=== PATIENT | female | born 1955 | race Caucasian/White ===

== ENCOUNTER 2017-03-19 10:00 | Inpatient (IN) | payer OTHER ==
[~2017-03-19] VITALS: Ht 165.1 cm; Wt 92.2 kg
[~2017-03-19 10:00] MED LIST: ACYC5CRE2 TP; ACYC800T PO; ALBU18HF IH; AMIT25TA PO; AMIT50TA PO; ASCO100020 PO; ASPI-630 PO; ASPI325T8 PO; BIOT25006 PO; CITA40TA5 PO; CLOP75TA PO; CRAN200C2 PO; DILT120C2 PO; FERR-26 PO; FEXO180T81 PO; FLUT1DIS IH; FLUT1DIS3 IH; FURO20TA3 PO; GABA-586 PO; HYDR-971 PO; LEVO50TA PO; LORA0.5T PO; LURA40TA PO; NITR1PAT9 SL; OMEG1CAP38 PO; OMEP20CA9 PO; ONDA4TAB12 PO; OXYC1TAB9 PO; PRALUENT; PRAS10TA9 PO; PROM25TA10 PO; RANO500T2 PO; SUMA100T4 PO; TRAM50TA PO; TRIA10.8 NS; VITA400T6 PO; [UNRECOGNIZED DRUG - OTHER]; advair
[2017-03-19] MEDS ORDERED: IV NORMAL SALINE 1,000ML 1,000 ML IV SCH (10:14)
[2017-03-19] MEDS ORDERED: ONDANSETRON PF 4 MG/2 ML VIAL. IV ONE (10:30)
[2017-03-19 10:52] LABS: BASO # 0.1 x10^3/uL (0.0-0.2); BASO % 0 % (0-3); EOS % 0 % (0-3); HEMATOCRIT 36.3 % (36.0-47.0); HEMOGLOBIN 11.5 g/dL (12.0-15.5); LYMPH # 2.7 x10^3/uL (1.0-4.8); LYMPH % 18 % (24-48); MEAN CORPUSCULAR HEMOGLOBIN 26 pg (25-35); MEAN CORPUSCULAR HGB CONC 32 g/dL (31-37); MEAN CORPUSCULAR VOLUME 81 fL (79-100); MONO # 1.2 x10^3/uL (0.0-1.1); MONO % 7 % (0-9); NEUT # 11.6 x10^3uL (1.8-7.7); NEUT % 75 % (31-73); PLATELET COUNT 437 x10^3/uL (140-400); RED BLOOD COUNT 4.51 x10^6/uL (3.50-5.40); RED CELL DISTRIBUTION WIDTH 19.5 % (11.5-14.5); WHITE BLOOD COUNT 15.5 x10^3/uL (4.0-11.0)
[2017-03-19] MEDS: fentaNYL PF 100 MCG/2 ML VIAL IV PRN ×9 (10:54→23:12)
--- NOTE | 2017-03-19 10:57 | RAD ---
Indication abdominal pain. History of bowel obstruction. A single view of the chest was obtained as well as flat and upright films of the abdomen. Comparison is made to a similar series of films December 14, 2016. The heart and pulmonary vessels appear normal. The lungs are clear. There is no free air. There is marked dilatation of proximal small bowel loops. Scattered air-fluid levels are seen on the upright film. There is a paucity of gas in the large bowel. Findings are consistent with high-grade mechanical small bowel obstruction. IMPRESSION: High-grade mechanical small bowel obstruction The chest is clear
--- NOTE | 2017-03-19 11:07 | PHYS DOC ---
Past History Past Medical History: Anxiety, Bipolar, CAD, Depression, Fibromyalgia, GERD, High Cholesterol, Hypothyroid, Migraines, Renal Failure, Other Past Surgical History: Other Smoking: Cigarettes Alcohol Use: None Drug Use: None Adult General Chief Complaint Chief Complaint: bowel obstruction HPI HPI Patient is a 61-year-old female who presents with the complaint of nausea, bloating, dry heaves, and abdominal pain for 3 days. Patient states "I just need an NG tube, some nausea and pain medication and IV fluids." Patient has an ileostomy which sometimes gets obstructed. She believes she has one of these episodes. She has tried taking GoLYTELY at home and has had some liquid output in her ileostomy but it did not resolve her symptoms. She said that usually what happens and she will get an NG tube for a couple of days and it usually resolves itself. She's had this multiple times. Patient states she has a hiatal hernia and is not able to vomit, she wishes she could vomit because she would feel better. She does have dry heaves. PCP Dr. Chacon Review of Systems Review of Systems Constitutional: Denies fever or chills [] Eyes: Denies change in visual acuity, redness, or eye pain [] HENT: Denies nasal congestion or sore throat [] Respiratory: Denies cough or shortness of breath [] Cardiovascular: Denies chest pain GI: As in history of present illness : Denies dysuria or hematuria [] Musculoskeletal: Denies back pain or joint pain [] Integument: Denies rash or skin lesions [] Neurologic: Denies headache, focal weakness or sensory changes [] Current Medications Current Medications Current Medications Medications (Trade) Dose Ordered Sig/Mima Start Time Stop Time Status Last Admin Dose Admin Fentanyl Citrate (Fentanyl 2ml Vial) 50 mcg PRN Q15MIN PRN 03/19/17 10:30 03/20/17 10:29 03/19/17 10:54 50 MCG Ondansetron HCl (Zofran) 4 mg 1X ONCE 03/19/17 10:30 03/19/17 10:31 DC 03/19/17 10:54 4 MG Sodium Chloride 1,000 ml @ 1,000 mls/hr Q1H 03/19/17 10:14 03/19/17 11:13 03/19/17 10:53 1,000 MLS/HR Allergies Allergies Allergies Coded Allergies Type Severity Reaction Last Updated Verified Penicillins Allergy Intermediate hives, short of air 09/09/16 Yes Sulfa (Sulfonamide Antibiotics) Allergy Intermediate hives 09/09/16 Yes atorvastatin Allergy Intermediate hives 09/09/16 Yes clonazepam Allergy Intermediate hives, short of air 09/09/16 Yes erythromycin base Allergy Intermediate hives 08/16/16 Yes fenofibrate Allergy Intermediate hives 08/16/16 Yes iodine Allergy Intermediate hives, short of air 08/16/16 Yes loratadine Allergy Intermediate hives, short of air 08/16/16 Yes pregabalin Allergy Intermediate hives 08/16/16 Yes ranolazine Allergy Intermediate hives 08/16/16 Yes rosuvastatin Allergy Intermediate hives 08/16/16 Yes sertraline Allergy Intermediate hives 08/16/16 Yes silver sulfadiazine Allergy Intermediate hives 08/16/16 Yes simvastatin Allergy Intermediate hives 08/16/16 Yes Physical Exam Physical Exam Constitutional: Well developed, well nourished, no acute distress, non-toxic appearance. Alert, mentating normally. HENT: Normocephalic, atraumatic, bilateral external ears normal, nose normal. [ ] Eyes: conjunctiva normal, no discharge. [] Neck: Normal range of motion, no stridor. [] Cardiovascular:Heart rate regular rhythm, nontachycardiac, no murmur [] Lungs & Thorax: Bilateral breath sounds clear to auscultation [] Abdomen: Distended with increased tympany. Increased bowel sounds. Ileostomy present with small amount of loose brown stool. Tender to palpation diffusely in the abdomen with no rebound or guarding. Skin: Warm, dry, no erythema, no rash. [] Extremities: No tenderness, no cyanosis, no clubbing, ROM intact, no edema. [] Neurologic: Alert and oriented X 3, normal motor function, normal sensory function, no focal deficits noted. [] Current Patient Data Vital Signs Vital Signs Date Time Temp Pulse Resp B/P (MAP) Pulse Ox O2 Delivery O2 Flow Rate FiO2 03/19/17 10:54 20 95 03/19/17 10:00 98.6 94 Room Air Lab Results Laboratory Tests Test 03/19/17 10:30 White Blood Count 15.5 x10^3/uL (4.0-11.0) H Red Blood Count 4.51 x10^6/uL (3.50-5.40) Hemoglobin 11.5 g/dL (12.0-15.5) L Hematocrit 36.3 % (36.0-47.0) Mean Corpuscular Volume 81 fL (79-100) Mean Corpuscular Hemoglobin 26 pg (25-35) Mean Corpuscular Hemoglobin Concent 32 g/dL (31-37) Red Cell Distribution Width 19.5 % (11.5-14.5) H Platelet Count 437 x10^3/uL (140-400) H Neutrophils (%) (Auto) 75 % (31-73) H Lymphocytes (%) (Auto) 18 % (24-48) L Monocytes (%) (Auto) 7 % (0-9) Eosinophils (%) (Auto) 0 % (0-3) Basophils (%) (Auto) 0 % (0-3) Neutrophils # (Auto) 11.6 x10^3uL (1.8-7.7) H Lymphocytes # (Auto) 2.7 x10^3/uL (1.0-4.8) Monocytes # (Auto) 1.2 x10^3/uL (0.0-1.1) H Eosinophils # (Auto) 0.0 x10^3/uL (0.0-0.7) Basophils # (Auto) 0.1 x10^3/uL (0.0-0.2) EKG EKG [] Radiology/Procedures Radiology/Procedures Acute abdomen series obtained and read by the radiologist. Also reviewed by me. High-grade small bowel obstruction with no free air. The chest is clear. [] Course & Med Decision Making Course & Med Decision Making Pertinent Labs and Imaging studies reviewed. (See chart for details) 61-year-old female with a history of recurrent small bowel obstructions that may be related to malfunctioning ileostomy, that's not clear to me, presents with symptoms consistent with a small bowel obstruction. We will check labs and x-rays, give her IV fluids and IV pain and nausea medicines. Plain films are consistent with small bowel obstruction. NG tube was ordered. Labs remarkable for creatinine elevated at 1.9, likely due to dehydration, and white count elevated at 15, may also be due to dehydration, she does not have a surgical abdomen. I discussed The case with Dr. Hinson, on-call for hospital medicine. She will admit the patient. I wrote bridge orders. [] Dragon Disclaimer Dragon Disclaimer This chart was dictated in whole or in part using Voice Recognition software in a busy, high-work load, and often noisy Emergency Department environment. It may contain unintended and wholly unrecognized errors or omissions. Departure Departure: Impression: Primary Impression: Small bowel obstruction Additional Impression: Dehydration Disposition: 09 ADMITTED INPATIENT Admitting Physician: Sofie Hinson Condition: STABLE Referrals: JESUS PALUMBO MD (PCP) Problem Qualifiers TEE GARAY MD March 19, 2017 11:07
[2017-03-19 11:17] LABS: % BANDS 2 % (0-9); % LYMPHS 20 % (24-48); % MONOS 3 % (0-10); % SEGS 75 % (35-66)
[2017-03-19 11:18] LABS: ANISOCYTOSIS MOD; MICROCYTOSIS SLIGHT; PLT ESTIMATE ADEQUATE (ADEQUATE); POIKILOCYTOSIS SLIGHT
[2017-03-19] MEDS ORDERED: BENZOCAINE ONE 20% MUCOSAL SPRAY. MM (11:30)
[2017-03-19 11:45] LABS: ALBUMIN 2.7 g/dL (3.4-5.0); ALBUMIN/GLOBULIN RATIO 0.7 (1.0-1.7); CALCIUM 8.2 mg/dL (8.5-10.1); CREATININE 1.9 mg/dL (0.6-1.0); GFR 27.1; POTASSIUM 4.3 mmol/L (3.5-5.1); TOTAL BILIRUBIN 0.4 mg/dL (0.2-1.0); TOTAL PROTEIN 6.5 g/dL (6.4-8.2)
[2017-03-19] MEDS: IV NORMAL SALINE 1,000ML 1,000 ML IV SCH ×2 (11:58→18:11)
[2017-03-19 12:23] VITALS: BP 103/64
--- NOTE | 2017-03-19 12:23 | ACF ---
Admission Criteria Forms INTESTINAL OBSTRUCTION Clinical Indications for Admission to Inpatient Care (Place 'X' for any and all applicable criteria): Admission is indicated for ANY ONE of the following (1)(2)(3)(4)(5): [X]I. Partial bowel obstruction [ ]II. Complete bowel obstruction Extended stay beyond goal length of stay may be needed for(1)(4)(12(: [ ]a) Identified etiology (eg, hernia, volvulus, cancer with obstruction) requiring intervention [ ]b) Gallstone ileus [ ]c) Surgical intervention [ ]d) Acute comorbid illness (eg, electrolyte imbalance, hypovolemia, renal failure) The original [employer] content created by [employer] has been revised. The portions of the content which have been revised are identified through the use of italic text or in bold, and [facility] has neither reviewed nor approved the modified material. All other unmodified content is copyright [employer] Please see references footnoted in the original [employer] edition 2016 Admission Criteria Met?: Yes PANTERA SMITH March 19, 2017 12:23
[2017-03-19] MEDS: METOCLOPRAMIDE HCL 10 MG/2 ML VIAL. IV PRN (13:15)
[2017-03-19] MEDS: FAMOTIDINE 20 MG/2 ML VIAL IVP SCH ×2 (13:15→19:38)
[2017-03-19] MEDS ORDERED: ALBU1.25 NEB (13:26)
[2017-03-19 15:22] VITALS: BP 104/66
[2017-03-19] MEDS: ONDANSETRON PF 4 MG/2 ML VIAL. IV PRN ×2 (16:07→21:28)
[2017-03-19] MEDS: MVI, ADULT NO.4 WITH VIT K 10 ML, FOLIC ACID 1 MG, THIAMINE 100 MG in IV DEXTROSE 5 %-0... IV SCH ×4 (18:48)
[2017-03-19 19:45] VITALS: BP 110/68
[2017-03-19] MEDS ORDERED: ALBUTEROL SULFATE 2.5 MG/3 ML NEBU. NEB SCH (20:00)
[2017-03-19] MEDS ORDERED: NON FORMULARY ITEM (Albuterol Sulfate (Albuterol Sulfate Neb Soln) 1 VIAL) NEB SCH (20:00)
[2017-03-19] MEDS: ALBUTEROL SULFATE 2.5 MG/3 ML NEBU. NEB SCH (20:16)
[2017-03-19 23:11] VITALS: BP 101/69
[2017-03-20] MEDS: METOCLOPRAMIDE HCL 10 MG/2 ML VIAL. IV PRN ×3 (01:14→13:54)
[2017-03-20] MEDS: fentaNYL PF 100 MCG/2 ML VIAL IV PRN ×7 (01:14→13:54)
[2017-03-20] MEDS: IV NORMAL SALINE 1,000ML 1,000 ML IV SCH ×4 (01:50→22:02)
[2017-03-20] MEDS: ALBUTEROL SULFATE 2.5 MG/3 ML NEBU. NEB SCH ×3 (05:22→20:34)
[2017-03-20] MEDS: ONDANSETRON PF 4 MG/2 ML VIAL. IV PRN ×3 (05:27→15:59)
[2017-03-20 05:35] VITALS: BP 118/69
[2017-03-20] MEDS: FAMOTIDINE 20 MG/2 ML VIAL IVP SCH ×2 (08:11→22:23)
[2017-03-20 08:20] LABS: BASO % 0 % (0-3); EOS % 0 % (0-3); HEMATOCRIT 30.3 % (36.0-47.0); HEMOGLOBIN 9.9 g/dL (12.0-15.5); LYMPH # 1.9 x10^3/uL (1.0-4.8); LYMPH % 18 % (24-48); MEAN CORPUSCULAR HEMOGLOBIN 27 pg (25-35); MEAN CORPUSCULAR HGB CONC 33 g/dL (31-37); MEAN CORPUSCULAR VOLUME 81 fL (79-100); MONO # 0.7 x10^3/uL (0.0-1.1); MONO % 7 % (0-9); NEUT # 7.8 x10^3uL (1.8-7.7); NEUT % 75 % (31-73); PLATELET COUNT 308 x10^3/uL (140-400); RED BLOOD COUNT 3.74 x10^6/uL (3.50-5.40); RED CELL DISTRIBUTION WIDTH 19.7 % (11.5-14.5); WHITE BLOOD COUNT 10.4 x10^3/uL (4.0-11.0)
[2017-03-20 08:31] LABS: ALBUMIN 2.4 g/dL (3.4-5.0); ALBUMIN/GLOBULIN RATIO 0.7 (1.0-1.7); CALCIUM 7.7 mg/dL (8.5-10.1); CREATININE 1.2 mg/dL (0.6-1.0); MAGNESIUM 1.8 mg/dL (1.8-2.4); POTASSIUM 3.8 mmol/L (3.5-5.1); TOTAL BILIRUBIN 0.3 mg/dL (0.2-1.0); TOTAL PROTEIN 5.7 g/dL (6.4-8.2)
--- NOTE | 2017-03-20 10:13 | PDOC2 ---
JENNIFER PEÑALOZA CHIEF SCIENTIST 03/20/17 1013: CONSULT Date of Admission DATE: 03/20/17 TIME: 10:04 Reason for Consult: SBO Referring Physician: Dr Hinson Chief Complaint abdominal pain Source: Chart review, Patient Problem List Problems Medical Problems: (1) Dehydration Status: Acute (2) Small bowel obstruction Status: Acute History of Present Illness Several day history of abdominal pain and nausea. She has had a HH repair in past, no vomiting. Ileostomy output decreased and watery. Not able to maintain much PO at home. Still having some abdominal pain and minimal ostomy output. She has had multiple abdominal surgeries in past and several SBOs, last here for SBO in November Cardiovascular: CAD, HTN, NE, hyperipidemia Psych: Bipolar, Depression Rheumatologic: Fibromyalgia Past Surgical History: Appendectomy, Cholecystectomy, Colectomy (ileostomy), Other (beverley fundoplication) Family History: Coronary Artery Disease Smoke: <1 pack per day ALCOHOL: none Drugs: None Lives: Alone Current Medications Current Medications Fentanyl Citrate (Fentanyl 2ml Vial) 50 mcg PRN Q15MIN PRN IV PAIN GREATER THAN 3/10 Last administered on 03/19/17 11:44; Start 03/19/17 at 10:30; Stop 03/19 at 12:19; Status DC Sodium Chloride 1,000 ml @ 1,000 mls/hr Q1H IV Last administered on 03/19/17 10:53; Start 03/19/17 at 10:14; Stop 03/19/17 at 11:13; Status DC Ondansetron HCl (Zofran) 4 mg 1X ONCE IV Last administered on 03/19/17 10:54; Start 03/19/17 at 10:30; Stop 03/19/17 at 10:31; Status DC Benzocaine (Hurricaine One) 1 spray 1X ONCE MM Last administered on 03/19/17 11:45; Start 03/19/17 at 11:30; Stop 03/19/17 at 11:31; Status DC Ondansetron HCl (Zofran) 4 mg PRN Q4HRS PRN IV NAUSEA/VOMITING Last administered on 03/20/17 05:27; Start 03/19/17 at 12:00; Stop 03/20/17 at 11:59 Fentanyl Citrate (Fentanyl 2ml Vial) 50 mcg PRN Q1HR PRN IV PAIN Last administered on 03/20/17 08:12; Start 03/19/17 at 12:00; Stop 03/20/17 at 09:09; Status DC Sodium Chloride 1,000 ml @ 150 mls/hr Q6H40M IV Last administered on 03/20/17 08:11; Start 03/19/17 at 11:58; Stop 03/20/17 at 11:57 Metoclopramide HCl (Reglan) 5 mg PRN Q6HRS PRN IV NAUSEA/VOMITING Last administered on 03/20/17 08:11; Start 03/19/17 at 12:45 Famotidine (Pepcid) 20 mg BID IVP Last administered on 03/20/17 08:11; Start at 12:45 Multivitamins/ Minerals 10 ml/ Folic Acid 1 mg/ Thiamine HCl 100 mg/Dextrose/ Sodium Chloride 1,011.2 ml @ 100.009 mls/hr Q24H IV Last administered on 18:48; Start 03/19/17 at 21:00 Non-Formulary Medication 1 vial RTBID NEB ; Start 03/19/17 at 20:00; Status UNV Albuterol Sulfate (Ventolin) 2.5 mg RTBID NEB ; Start 03/19/17 at 20:00; Stop 03/19/17 at 20:00; Status DC Albuterol Sulfate (Ventolin) 2.5 mg TID NEB Last administered on 03/20/17 05:22 ; Start 03/19/17 at 21:00 Fentanyl Citrate (Fentanyl 2ml Vial) 75 mcg PRN Q2HR PRN IV PAIN Last administered on 03/20/17 09:21; Start 03/20/17 at 09:15; Stop 03/25/17 at 09:14 Active Scripts Active Clopidogrel (Clopidogrel Bisulfate) 75 Mg Tablet 75 Mg PO [id number] Reported Albuterol Sulfate Neb Soln (Albuterol Sulfate) 1.25 Mg/3 Ml Vial.neb 1 Vial NEB RTBID [praluent] Ranexa (Ranolazine) 500 Mg Tab.er.12h 1 Tab PO BID Ferrous Sulfate 325 Mg Tablet 325 Mg PO DAILY may resume DATE: TIME: NEXT DOSE DUE: DATE: TIME: [place] 3 Fish Oil Softgel ([place]-3 Fatty Acids/Fish Oil) 1 Each Capsule.dr 1 Cap PO DAILY may resume Aspirin 325 Mg Tablet 325 Mg PO DAILY may resume Amitriptyline Hcl 25 Mg Tablet 25 Mg PO QHS may resume DATE: TIME: NEXT DOSE DUE: DATE: TIME: Latuda (Lurasidone Hcl) 40 Mg Tablet 40 Mg PO QHS last dose last night next dose tonight TIME: NEXT DOSE DUE: DATE: TIME: Biotin 2,500 Mcg Capsule 2,000 Mcg PO DAILY may resume DATE: TIME: NEXT DOSE DUE: DATE: TIME: Cranberry (Cranberry Extract) 200 Mg Capsule 1 Cap PO DAILY may resume DATE: TIME: NEXT DOSE DUE: DATE: TIME: Vitamin E (Vitamin E Mixed) 400 Unit Tablet 800 Unit PO DAILY may resume DATE: TIME: NEXT DOSE DUE: DATE: TIME: Nasacort (Triamcinolone Acetonide) 10.8 Ml [place] 1 Spr NS DAILY may resume DATE: TIME: NEXT DOSE DUE: DATE: TIME: Tatiana Allergy (Fexofenadine Hcl) 180 Mg Tablet 180 Mg PO DAILY LAST DOSE GIVEN: DATE: TIME: NEXT DOSE DUE: DATE: TIME: Zovirax (Acyclovir) 5 Gm Cream..g. 1 [place] TP PRN may resume as needed DATE: TIME: NEXT DOSE DUE: DATE: TIME: Acyclovir 800 Mg Tablet 800 Mg PO TID PRN resume as needed DATE: TIME: NEXT DOSE DUE: DATE: TIME: Ondansetron Odt (Ondansetron) 4 Mg Tab.rapdis 4 Mg PO Q4HRS PRN may resume DATE: TIME: NEXT DOSE DUE: DATE: TIME: Promethazine Hcl 25 Mg Tablet 25 Mg PO PRN Q6HRS PRN may resume DATE: TIME: NEXT DOSE DUE: DATE: TIME: Oxycodone-Acetaminophen 10-325 (Oxycodone Hcl/Acetaminophen) 1 Each Tablet 1 Tab PO Q4HRS PRN last dose this morning at 3:40am may resume as needed TIME: NEXT DOSE DUE: DATE: TIME: NITRO-DUR 0.4mg/hr (Nitroglycerin) 1 Each Patch.td24 0.4 Mg SL PRN PRN 1 tab q 5 min x 3 doses as needed for chest pain LAST DOSE GIVEN: DATE: TIME: NEXT DOSE DUE: DATE: TIME: Furosemide 20 Mg Tablet 20 Mg PO QODAY may resume DATE: TIME: NEXT DOSE DUE: DATE: TIME: Synthroid (Levothyroxine Sodium) 50 Mcg Tablet 50 Mcg PO DAILY last dose this morning next dose tomorrow TIME: NEXT DOSE DUE: DATE: TIME: Omeprazole 20 Mg Capsule.dr 20 Mg PO DAILY may resume DATE: TIME: NEXT DOSE DUE: DATE: TIME: Citalopram Hbr (Citalopram Hydrobromide) 40 Mg Tablet 40 Mg PO DAILY may resume DATE: TIME: NEXT DOSE DUE: DATE: TIME: Lorazepam 0.5 Mg Tablet 0.5 Mg PO DAILY may resume DATE: TIME: NEXT DOSE DUE: DATE: TIME: Tramadol Hcl (Tramadol HCl) 50 Mg Tablet 100 Mg PO BID may resume DATE: TIME: NEXT DOSE DUE: DATE: TIME: Cardizem Cd (Diltiazem Hcl) 120 Mg Cap.er.24h 120 Mg PO BID may resume DATE: TIME: NEXT DOSE DUE: DATE: TIME: Gabapentin 300 Mg Capsule 300 Mg PO TID last dose last night next dose this morning TIME: NEXT DOSE DUE: DATE: TIME: Allergies: Coded Allergies: Penicillins (Verified Allergy, Intermediate, hives, short of air, 09/09/16 ) Sulfa (Sulfonamide Antibiotics) (Verified Allergy, Intermediate, hives, ) atorvastatin (Verified Allergy, Intermediate, hives, 09/09/16) clonazepam (Verified Allergy, Intermediate, hives, short of air, 09/09/16) erythromycin base (Verified Allergy, Intermediate, hives, 08/16/16) fenofibrate (Verified Allergy, Intermediate, hives, 08/16/16) iodine (Verified Allergy, Intermediate, hives, short of air, 08/16/16) loratadine (Verified Allergy, Intermediate, hives, short of air, 08/16/16) pregabalin (Verified Allergy, Intermediate, hives, 08/16/16) ranolazine (Verified Allergy, Intermediate, hives, 08/16/16) rosuvastatin (Verified Allergy, Intermediate, hives, 08/16/16) sertraline (Verified Allergy, Intermediate, hives, 08/16/16) silver sulfadiazine (Verified Allergy, Intermediate, hives, 08/16/16) simvastatin (Verified Allergy, Intermediate, hives, 08/16/16) General: No: Chills, Other (fevers) PSYCHOLOGICAL ROS: No: Anxiety, Depression Eyes: No: Blurry vision, Double vision HEENT: YES: Sore Throat, No: Heacaches Hematological and Lymphatic: YES: Bleeding Problems, No: Blood Clots Respiratory: No: Cough, Shortness of breath Cardiovascular: No: Chest Pain, Palpitations Gastrointestinal: YES: Other (see hpi) Genitourinary: YES: Dysuria, No: Henaturia Musculoskeletal: YES: Joint Pain, Muscle Pain Neurological: No: Confusion, Numbness/Tingling Skin: No: Pruritus, Rash General: Alert, Oriented X3, Cooperative, No acute distress HEENT: Other (NG present, scant drainage ) Lungs: Clear to auscultation, Normal air movement Heart: Regular rate, Normal S1, Normal S2, No murmurs Abdomen: Soft, Other (ND, NTTP, ileostomy present, small amoount liquid stool, she reports not her typical output) Extremities: No clubbing, No cyanosis Skin: No rashes, No breakdown, No significant lesion Neuro: Normal speech, Sensation intact Psych/Mental Status: Mental status NL VITALS Vital Signs Date Time Temp Pulse Resp B/P (MAP) Pulse Ox O2 Delivery O2 Flow Rate FiO2 03/20/17 07:45 Nasal Cannula 2.0 03/20/17 05:57 94 03/20/17 05:35 98.1 95 16 118/69 (85) Labs Laboratory Tests Test 03/19/17 10:30 03/19/17 11:16 03/19/17 12:11 03/20/17 08:12 White Blood Count 15.5 x10^3/uL (4.0-11.0) 10.4 x10^3/uL (4.0-11.0) Red Blood Count 4.51 x10^6/uL (3.50-5.40) 3.74 x10^6/uL (3.50-5.40) Hemoglobin 11.5 g/dL (12.0-15.5) 9.9 g/dL (12.0-15.5) Hematocrit 36.3 % (36.0-47.0) 30.3 % (36.0-47.0) Mean Corpuscular Volume 81 fL (79-100) 81 fL (79-100) Mean Corpuscular Hemoglobin 26 pg (25-35) 27 pg (25-35) Mean Corpuscular Hemoglobin Concent 32 g/dL (31-37) 33 g/dL (31-37) Red Cell Distribution Width 19.5 % (11.5-14.5) 19.7 % (11.5-14.5) Platelet Count 437 x10^3/uL (140-400) 308 x10^3/uL (140-400) Neutrophils (%) (Auto) 75 % (31-73) 75 % (31-73) Lymphocytes (%) (Auto) 18 % (24-48) 18 % (24-48) Monocytes (%) (Auto) 7 % (0-9) 7 % (0-9) Eosinophils (%) (Auto) 0 % (0-3) 0 % (0-3) Basophils (%) (Auto) 0 % (0-3) 0 % (0-3) Neutrophils # (Auto) 11.6 x10^3uL (1.8-7.7) 7.8 x10^3uL (1.8-7.7) Lymphocytes # (Auto) 2.7 x10^3/uL (1.0-4.8) 1.9 x10^3/uL (1.0-4.8) Monocytes # (Auto) 1.2 x10^3/uL (0.0-1.1) 0.7 x10^3/uL (0.0-1.1) Eosinophils # (Auto) 0.0 x10^3/uL (0.0-0.7) 0.0 x10^3/uL (0.0-0.7) Basophils # (Auto) 0.1 x10^3/uL (0.0-0.2) 0.0 x10^3/uL (0.0-0.2) Segmented Neutrophils % 75 % (35-66) Band Neutrophils % 2 % (0-9) Lymphocytes % 20 % (24-48) Monocytes % 3 % (0-10) Platelet Estimate Adequate (ADEQUATE) Poikilocytosis Slight Anisocytosis Mod Microcytosis Slight Sodium Level 132 mmol/L (136-145) 138 mmol/L (136-145) Potassium Level 4.3 mmol/L (3.5-5.1) 3.8 mmol/L (3.5-5.1) Chloride Level 96 mmol/L (98-107) 105 mmol/L (98-107) Carbon Dioxide Level 26 mmol/L (21-32) 26 mmol/L (21-32) Anion Gap 10 (6-14) 7 (6-14) Blood Urea Nitrogen 32 mg/dL (7-20) 14 mg/dL (7-20) Creatinine 1.9 mg/dL (0.6-1.0) 1.2 mg/dL (0.6-1.0) Estimated GFR (Cockcroft-Gault) 27.1 46.0 BUN/Creatinine Ratio 17 (6-20) 12 (6-20) Glucose Level 100 mg/dL (70-99) 84 mg/dL (70-99) Calcium Level 8.2 mg/dL (8.5-10.1) 7.7 mg/dL (8.5-10.1) Total Bilirubin 0.4 mg/dL (0.2-1.0) 0.3 mg/dL (0.2-1.0) Aspartate Amino Transf (AST/SGOT) 57 U/L (15-37) 23 U/L (15-37) Alanine Aminotransferase (ALT/SGPT) 38 U/L (14-59) 24 U/L (14-59) Alkaline Phosphatase 202 U/L (46-116) 164 U/L (46-116) Total Protein 6.5 g/dL (6.4-8.2) 5.7 g/dL (6.4-8.2) Albumin 2.7 g/dL (3.4-5.0) 2.4 g/dL (3.4-5.0) Albumin/Globulin Ratio 0.7 (1.0-1.7) 0.7 (1.0-1.7) Lipase 101 U/L (73-393) Nasal Screen MRSA (PCR) Negative (Negative) Magnesium Level 1.8 mg/dL (1.8-2.4) Assessment/Plan SBO per plain films dehydration, improved XIOMARA--Cr now 1.2, improved multiple surgeries in past NG, decompression, hydration will check CT abd/pelvis hopefully will resolve without surgical intervention hold plavix Problems: GIRISH BRISCOE MD 03/20/17 1242: CONSULT Allergies: Coded Allergies: Penicillins (Verified Allergy, Intermediate, hives, short of air, 09/09/16 ) Sulfa (Sulfonamide Antibiotics) (Verified Allergy, Intermediate, hives, ) atorvastatin (Verified Allergy, Intermediate, hives, 09/09/16) clonazepam (Verified Allergy, Intermediate, hives, short of air, 09/09/16) erythromycin base (Verified Allergy, Intermediate, hives, 08/16/16) fenofibrate (Verified Allergy, Intermediate, hives, 08/16/16) iodine (Verified Allergy, Intermediate, hives, short of air, 08/16/16) loratadine (Verified Allergy, Intermediate, hives, short of air, 08/16/16) pregabalin (Verified Allergy, Intermediate, hives, 08/16/16) ranolazine (Verified Allergy, Intermediate, hives, 08/16/16) rosuvastatin (Verified Allergy, Intermediate, hives, 08/16/16) sertraline (Verified Allergy, Intermediate, hives, 08/16/16) silver sulfadiazine (Verified Allergy, Intermediate, hives, 08/16/16) simvastatin (Verified Allergy, Intermediate, hives, 08/16/16) Assessment/Plan Patient well known. She has had multiple episodes of sbo which have generally resolved with conservative treatment. Generally seen at [facility] where her last procedure was done, endoscopic desimpaction of ileostomy. Agree with Steff's assessment and plan. Problems: JENNIFER PEÑALOZA APRN March 20, 2017 10:13 GIRISH BRISCOE MD March 20, 2017 12:42
[2017-03-20] MEDS ORDERED: BARIUM SULFATE 2.1% 450 ML SUSP PO ONE (10:30)
[2017-03-20 11:50] VITALS: BP 108/64
--- NOTE | 2017-03-20 12:13 | HP ---
ADMIT DATE: 03/20/2017 REASON FOR ADMISSION: Small-bowel obstruction. HISTORY OF PRESENT ILLNESS: This is a 61-year-old female who has had multiple ileuses and small bowel obstructions in the past requiring hospitalization. She reports that she has been under a lot of stress lately and has not been eating the right kind of food. She has been eating a lot of junk. She reports a 4-day history of bloating and abdominal pain and so presented to the Emergency Room. PAST MEDICAL HISTORY: 1. Recurrent bowel obstructions. 2. Ileostomy status. 3. Coronary artery disease. 4. CHF. 5. Hypertension. 6. Hyperlipidemia. 7. Migraine headaches. 8. GERD. 9. Bipolar disorder. 10. Osteoarthritis. 11. Chronic renal insufficiency. 12. Hypothyroidism. PAST SURGICAL HISTORY: Cholecystectomy and colectomy with ileostomy. ALLERGIES: MULTIPLE ALLERGIES, PENICILLIN, SULFA, ATORVASTATIN, CLONAZEPAM, ERYTHROMYCIN, FENOFIBRATE, IODINE, LORATADINE, PREGABALIN, RANOLAZINE, ROSUVASTATIN, SERTRALINE, SILVER SULFADIAZINE, AND SIMVASTATIN. FAMILY HISTORY: Positive for hypertension. SOCIAL HISTORY: The patient continues to smoke less than a pack a day. Alcohol none. Drugs none. Lives with her family. MEDICATIONS: Reviewed and are available on the MAR currently being held. REVIEW OF SYSTEMS: Stated as occasional headache, blockage around the ileostomy currently, and cramping abdominal pain. OBJECTIVE: VITAL SIGNS: Blood pressure 118/69, pulse 95, respirations 16, temperature 98.1, pulse ox 94% on 2 liters, height 65 inches, and weight 198 pounds. GENERAL: A 61-year-old was in mild pain. Color is pale. HEENT: Tongue was moist and slightly dry. NECK: Supple. LUNGS: Clear. CARDIOVASCULAR: Regular rhythm and rate. ABDOMEN: Mildly distended. There is an NG tube in place. She has scant bowel sounds. Really, no output coming from the ileostomy. Some air in the ileostomy bag. EXTREMITIES: Without edema. LABORATORY DATA: White count was 15.5. Chemistry, sodium 138, but it was 132; potassium 3.8, magnesium 1.8, calcium 7.7, and albumin 2.4. CT of the abdomen is pending. Acute abdominal series from yesterday shows high-grade mechanical small-bowel obstruction. ASSESSMENT: 1. Recurrent small-bowel obstruction. 2. Dehydration. 3. Pain management. 4. Dehydration replacement. 5. Leukocytosis, suspect inflammatory and not sepsis. 6. Stress. 7. Bipolar disorder stable. 8. Tobacco use disorder. PLAN: N.p.o., NG tube, surgical consult, IV fluids, and pain management. We will hold off on antibiotics at this time. TORI LAST DO DR: STELLA/marlon JOB#: [id number] / [id number]
--- NOTE | 2017-03-20 12:48 | RAD ---
Indication small bowel obstruction. Abdominal pain. Oral contrast was administered. IV contrast was not. Note is made of a previous examination December 12, 2016. Note is made of the plain film examination yesterday demonstrating findings compatible with high-grade mechanical small bowel obstruction. The lung bases are clear. Nasogastric tube is noted extending into the stomach. Colostomy in the right lower abdomen is noted. The liver and spleen appear unremarkable. Clips are noted in the gallbladder fossa. No adrenal or renal pathology is seen. The pancreas appears unremarkable. A focal mass or inflammatory process in the abdomen is not seen. There are are a few mesenteric lymph nodes. These are probably incidental and appears similar to the previous exam. A soft tissue mass or inflammatory process in the pelvis is not seen. There are markedly dilated loops of small bowel. The most distal small bowel loops, just prior to the ostomy a relatively collapsed. Findings are most compatible with high-grade mechanical small bowel obstruction. The exact transition point is not certain but it is probably several centimeters proximal to the ileostomy site. IMPRESSION: High-grade mechanical small bowel obstruction PQRS Compliance Statement: One or more of the following individualized dose reduction techniques were utilized for this examination: 1. Automated exposure control 2. Adjustment of the mA and/or kV according to patient size 3. Use of iterative reconstruction technique
[2017-03-20] MEDS: ENOXAPARIN 40 MG/0.4 ML DISP.SYRIN. SQ SCH (13:54)
[2017-03-20] MEDS: HYDROmorphone PF 2 MG/ML VIAL IV PRN ×4 (15:54→22:22)
[2017-03-20] MEDS ORDERED: POLYVINYL ALCOHOL/POVIDONE/PF OPHTH SOLUTION DROPERETTE. OU PRN (16:15)
[2017-03-20 16:50] VITALS: BP 123/81
[2017-03-20 19:15] VITALS: BP 120/79
[2017-03-20] MEDS ORDERED: SUMAtriptan. 6 MG/0.5 ML VIAL SQ ONE (20:30)
[2017-03-20] MEDS: MVI, ADULT NO.4 WITH VIT K 10 ML, FOLIC ACID 1 MG, THIAMINE 100 MG in IV DEXTROSE 5 %-0... IV SCH ×4 (22:22)
[2017-03-21] MEDS: HYDROmorphone PF 2 MG/ML VIAL IV PRN ×8 (00:30→19:46)
[2017-03-21] MEDS: METOCLOPRAMIDE HCL 10 MG/2 ML VIAL. IV PRN ×2 (03:03→12:03)
[2017-03-21] MEDS: ALBUTEROL SULFATE 2.5 MG/3 ML NEBU. NEB SCH ×3 (05:18→19:53)
[2017-03-21 05:21] VITALS: BP 105/64
[2017-03-21 06:50] LABS: BASO % 0 % (0-3); EOS % 0 % (0-3); HEMATOCRIT 30.5 % (36.0-47.0); HEMOGLOBIN 9.4 g/dL (12.0-15.5); LYMPH # 2.5 x10^3/uL (1.0-4.8); LYMPH % 34 % (24-48); MEAN CORPUSCULAR HEMOGLOBIN 26 pg (25-35); MEAN CORPUSCULAR HGB CONC 31 g/dL (31-37); MEAN CORPUSCULAR VOLUME 83 fL (79-100); MONO # 0.9 x10^3/uL (0.0-1.1); MONO % 12 % (0-9); NEUT % 54 % (31-73); PLATELET COUNT 304 x10^3/uL (140-400); RED CELL DISTRIBUTION WIDTH 19.4 % (11.5-14.5); WHITE BLOOD COUNT 7.4 x10^3/uL (4.0-11.0)
[2017-03-21 06:57] LABS: ALBUMIN 2.4 g/dL (3.4-5.0); ALBUMIN/GLOBULIN RATIO 0.7 (1.0-1.7); GFR 56.7; POTASSIUM 3.5 mmol/L (3.5-5.1); TOTAL BILIRUBIN 0.2 mg/dL (0.2-1.0); TOTAL PROTEIN 5.8 g/dL (6.4-8.2)
[2017-03-21] MEDS: ONDANSETRON PF 4 MG/2 ML VIAL. IV PRN (08:22)
[2017-03-21] MEDS: IV NORMAL SALINE 1,000ML 1,000 ML IV SCH ×3 (08:23→13:59)
[2017-03-21] MEDS: FAMOTIDINE 20 MG/2 ML VIAL IVP SCH ×2 (08:23→19:35)
[2017-03-21 10:01] VITALS: BP 129/69
[2017-03-21] MEDS ORDERED: SUMAtriptan. 6 MG/0.5 ML VIAL SQ PRN (11:45)
--- NOTE | 2017-03-21 11:52 | PDOC ---
SURGICAL PROGRESS NOTE Subjective Doing better, with stool in ostomy. Still having nausea, but less pain Vital Signs Vital Signs Date Time Temp Pulse Resp B/P (MAP) Pulse Ox O2 Delivery O2 Flow Rate FiO2 03/21/17 10:01 98.8 97 20 129/69 (89) 93 Room Air 03/20/17 11:50 1.0 I&O Intake and Output 03/21/17 06:59 Intake Total 1709 ml Output Total 800 ml Balance 909 ml Intake Oral 0 ml IV Total 1709 ml Output Gastric Drainage Total 800 ml # Voids 9 # Bowel Movements 2 PATIENT HAS A BEAL: No General: Alert, Oriented X3, Cooperative, mild distress Abdomen: Normal bowel sounds, Soft, No tenderness, Other (NGT in place. Stool in the ostomy bag) Labs Laboratory Tests Test 03/19/17 12:11 03/20/17 08:12 03/21/17 06:07 Nasal Screen MRSA (PCR) Negative (Negative) White Blood Count 10.4 x10^3/uL (4.0-11.0) 7.4 x10^3/uL (4.0-11.0) Red Blood Count 3.74 x10^6/uL (3.50-5.40) 3.70 x10^6/uL (3.50-5.40) Hemoglobin 9.9 g/dL (12.0-15.5) 9.4 g/dL (12.0-15.5) Hematocrit 30.3 % (36.0-47.0) 30.5 % (36.0-47.0) Mean Corpuscular Volume 81 fL (79-100) 83 fL (79-100) Mean Corpuscular Hemoglobin 27 pg (25-35) 26 pg (25-35) Mean Corpuscular Hemoglobin Concent 33 g/dL (31-37) 31 g/dL (31-37) Red Cell Distribution Width 19.7 % (11.5-14.5) 19.4 % (11.5-14.5) Platelet Count 308 x10^3/uL (140-400) 304 x10^3/uL (140-400) Neutrophils (%) (Auto) 75 % (31-73) 54 % (31-73) Lymphocytes (%) (Auto) 18 % (24-48) 34 % (24-48) Monocytes (%) (Auto) 7 % (0-9) 12 % (0-9) Eosinophils (%) (Auto) 0 % (0-3) 0 % (0-3) Basophils (%) (Auto) 0 % (0-3) 0 % (0-3) Neutrophils # (Auto) 7.8 x10^3uL (1.8-7.7) 4.0 x10^3uL (1.8-7.7) Lymphocytes # (Auto) 1.9 x10^3/uL (1.0-4.8) 2.5 x10^3/uL (1.0-4.8) Monocytes # (Auto) 0.7 x10^3/uL (0.0-1.1) 0.9 x10^3/uL (0.0-1.1) Eosinophils # (Auto) 0.0 x10^3/uL (0.0-0.7) 0.0 x10^3/uL (0.0-0.7) Basophils # (Auto) 0.0 x10^3/uL (0.0-0.2) 0.0 x10^3/uL (0.0-0.2) Sodium Level 138 mmol/L (136-145) 139 mmol/L (136-145) Potassium Level 3.8 mmol/L (3.5-5.1) 3.5 mmol/L (3.5-5.1) Chloride Level 105 mmol/L (98-107) 105 mmol/L (98-107) Carbon Dioxide Level 26 mmol/L (21-32) 28 mmol/L (21-32) Anion Gap 7 (6-14) 6 (6-14) Blood Urea Nitrogen 14 mg/dL (7-20) 8 mg/dL (7-20) Creatinine 1.2 mg/dL (0.6-1.0) 1.0 mg/dL (0.6-1.0) Estimated GFR (Cockcroft-Gault) 46.0 56.7 BUN/Creatinine Ratio 12 (6-20) 8 (6-20) Glucose Level 84 mg/dL (70-99) 87 mg/dL (70-99) Calcium Level 7.7 mg/dL (8.5-10.1) 8.0 mg/dL (8.5-10.1) Magnesium Level 1.8 mg/dL (1.8-2.4) Total Bilirubin 0.3 mg/dL (0.2-1.0) 0.2 mg/dL (0.2-1.0) Aspartate Amino Transf (AST/SGOT) 23 U/L (15-37) 19 U/L (15-37) Alanine Aminotransferase (ALT/SGPT) 24 U/L (14-59) 20 U/L (14-59) Alkaline Phosphatase 164 U/L (46-116) 145 U/L (46-116) Total Protein 5.7 g/dL (6.4-8.2) 5.8 g/dL (6.4-8.2) Albumin 2.4 g/dL (3.4-5.0) 2.4 g/dL (3.4-5.0) Albumin/Globulin Ratio 0.7 (1.0-1.7) 0.7 (1.0-1.7) Assessment/Plan SBO appears to be resolving. Awaiting SBFT results but patient says they told her the barium went all the way through. If the official report on SBFT confirms passing then NGT can be removed. GIRISH BRISCOE MD March 21, 2017 11:52
--- NOTE | 2017-03-21 11:58 | RAD ---
Exam performed: Small bowel Follow-through exam. History: Small bowel obstruction follow-up Date of service: 03/21/17. Comparison: None available Discussion: A preliminary computer numeric control setter film of the abdomen demonstrates nonspecific mildly prominent small bowel loops. There is a feeding tube in the stomach. Cholecystectomy. Patient was administered approximately 2 cups of nondilated Omnipaque and sequential images of the abdomen are obtained. There is mild prominence of the jejunal and ileal loops. There is presence of contrast in the ileostomy tube at approximately 1 hour 15 minutes. Spot films were not taken Impression: Mild prominence of the jejunal and ileal loops likely mild ileus pattern. No evidence of obstruction is seen.
[2017-03-21] MEDS: ENOXAPARIN 40 MG/0.4 ML DISP.SYRIN. SQ SCH (12:03)
[2017-03-21] MEDS ORDERED: ACYCLOVIR TP PRN (13:00)
[2017-03-21] MEDS ORDERED: ONDANSETRON ODT 4 MG TAB.RAPDIS PO PRN (13:00)
[2017-03-21] MEDS ORDERED: PROMETHAZINE 25 MG TABLET. PO PRN (13:00)
[2017-03-21] MEDS ORDERED: ACYCLOVIR 800 MG PO PRN (13:00)
[2017-03-21] MEDS: GABAPENTIN 300 MG CAPSULE. PO SCH ×2 (13:58→19:35)
[2017-03-21 14:52] VITALS: BP 115/66
[2017-03-21 16:18] VITALS: BP 142/77
[2017-03-21 19:22] VITALS: BP 107/62
[2017-03-21] MEDS: MVI, ADULT NO.4 WITH VIT K 10 ML, FOLIC ACID 1 MG, THIAMINE 100 MG in IV DEXTROSE 5 %-0... IV SCH ×4 (19:34)
[2017-03-21] MEDS: oxyCODONE/APAP 10/325 1 TAB TABLET PO PRN ×3 (19:35→22:37)
[2017-03-21] MEDS: RANOLAZINE 500 MG TAB.ER.12H PO SCH (19:36)
[2017-03-21] MEDS: AMITRIPTYLINE HCL 25 MG TABLET PO SCH (19:39)
[2017-03-21] MEDS ORDERED: LURASIDONE 40 MG TABLET. PO SCH (21:00)
--- NOTE | 2017-03-21 21:05 | PN ---
DATE: 03/21/2017 SUBJECTIVE: The patient is resting slightly propped up in bed, in no apparent distress. She came in with the small-bowel obstruction and apparently has had NG tube to suction and underwent small bowel follow through and it showed that there is mild prominence of the jejunal and ileal loops. There is presence of contrast in the ileostomy tube approximately 1 hour [address] to Dr. Navarro, her NG tube can come out and hopefully we will probably be able to start her on clear liquid diet. PHYSICAL EXAMINATION: GENERAL: When I examined her this morning, she looked well and was clearly in no apparent respiratory distress, slightly pale, but no jaundice, cyanosis or thyromegaly. No jugular venous distention. No limb edema. VITAL SIGNS: Her heart rate was 97, blood pressure 129/69, temperature was 98.8, respiratory rate 20 and oxygen saturation was 93% on room air. HEAD, EYES, EARS, NOSE AND THROAT: Showed normocephalic, atraumatic. NECK: Supple. HEART: Showed normal first and second heart sounds with no gallop, rub or murmur. CHEST: Clear to auscultation. No crepitation or rhonchi. ABDOMEN: Distended, soft with an ileostomy bag in the right lower quadrant. The abdomen was generally soft except some tenderness around the ileostomy bag. No guarding or rigidity. No organomegaly. All hernial orifices intact. Bowel sounds normal. NEUROLOGIC: She is awake, alert, responding appropriately. Cranial nerves are intact. She moves extremities without difficulty. She ambulates without assistance or assistive devices. Her intake over the last 24 hours was 1700, output was 800. LABORATORY DATA: Showed a serum sodium was 139, potassium 3.5, chloride 105, bicarbonate 28, anion gap of 6, BUN 8, creatinine 1, estimated GFR was 56 mL per minute. Her glucose was 87, calcium was 8. Total bilirubin, AST, ALT were normal. Alkaline phosphatase slightly elevated. Her total protein was 5.8, albumin 2.4. Her white cell count was 7400, hemoglobin 9.4, hematocrit 30.5, MCV 83 and platelet count of 304,000. ASSESSMENT: Small-bowel obstruction, resolving. Her small bowel follow through showed that the barium is in the ileostomy bag. Other issues include coronary artery disease, congestive heart failure, hypertension, hyperlipidemia, migraine headache, chronic renal insufficiency, hypothyroidism and bipolar disorder. PLAN: My plan is to discontinue the NG tube and start her on a clear liquid diet, continue with antiemetic and pain medication for now and advance diet as tolerated if she has no episodes of nausea or vomiting and tolerating a clear liquid diet without any problem. MAGDALENA PARADA MD DR: CLARA/marlon JOB#: [id number] / [id number]
[2017-03-21] MEDS: traMADol 50 MG TABLET PO SCH (21:13)
[2017-03-22] MEDS: IV NORMAL SALINE 1,000ML 1,000 ML IV SCH ×3 (00:42→13:25)
[2017-03-22] MEDS: oxyCODONE/APAP 10/325 1 TAB TABLET PO PRN ×3 (04:26→20:37)
[2017-03-22] MEDS: ALBUTEROL SULFATE 2.5 MG/3 ML NEBU. NEB SCH ×3 (04:58→20:50)
[2017-03-22] MEDS: LEVOTHYROXINE 50 MCG TABLET PO SCH (05:04)
[2017-03-22 05:47] VITALS: BP 114/83
[2017-03-22 06:47] LABS: ALBUMIN 2.3 g/dL (3.4-5.0); ALBUMIN/GLOBULIN RATIO 0.7 (1.0-1.7); CREATININE 0.9 mg/dL (0.6-1.0); GFR 64.1; POTASSIUM 3.8 mmol/L (3.5-5.1); TOTAL BILIRUBIN 0.2 mg/dL (0.2-1.0); TOTAL PROTEIN 5.5 g/dL (6.4-8.2)
[2017-03-22] MEDS: RANOLAZINE 500 MG TAB.ER.12H PO SCH ×2 (07:50→20:37)
[2017-03-22] MEDS: FLUTICASONE 50MCG/NASAL SPRAY 16GM BOTTLE. NS SCH (07:50)
[2017-03-22] MEDS: FAMOTIDINE 20 MG/2 ML VIAL IVP SCH ×2 (07:50→20:40)
[2017-03-22] MEDS: CLOPIDOGREL BISULFATE 75 MG TABLET PO SCH (07:50)
[2017-03-22] MEDS: ASPIRIN 325 MG TABLET PO SCH (07:50)
[2017-03-22] MEDS: CITALOPRAM 20 MG TABLET. PO SCH (07:51)
[2017-03-22] MEDS: OMEGA-3 FATTY ACIDS/FISH OIL 1,000 MG CAPSULE. PO SCH (07:51)
[2017-03-22] MEDS: LORazepam 0.5 MG TABLET PO SCH (07:51)
[2017-03-22] MEDS: PANTOPRAZOLE 40 MG TABLET. PO SCH (07:51)
[2017-03-22] MEDS: VITAMIN E. 400 UNIT CAPSULE. PO SCH (07:51)
[2017-03-22] MEDS: FERROUS SULFATE 325 MG TABLET PO SCH (07:52)
[2017-03-22] MEDS: traMADol 50 MG TABLET PO SCH ×2 (07:52→20:37)
[2017-03-22] MEDS: GABAPENTIN 300 MG CAPSULE. PO SCH ×3 (07:52→20:36)
[2017-03-22] MEDS: CETIRIZINE HCL 10 MG TABLET PO SCH (07:52)
[2017-03-22] MEDS ORDERED: BIOTIN 2000 MCG PO SCH (09:00)
[2017-03-22] MEDS ORDERED: CRANBERRY EXTRACT PO SCH (09:00)
[2017-03-22 11:05] VITALS: BP 134/81
[2017-03-22] MEDS: ENOXAPARIN 40 MG/0.4 ML DISP.SYRIN. SQ SCH (12:02)
--- NOTE | 2017-03-22 13:44 | PN ---
DATE: 03/22/2017 SUBJECTIVE: The patient is resting, slightly propped up in bed, in no apparent distress. She is awake, alert. On questioning her, denied any further episode of nausea or vomiting. She is tolerating her clear liquid diet without any problem. The plan is to advance her to full liquid diet at lunch and perhaps soft diet at dinner. OBJECTIVE: GENERAL: On examining her this morning, she looked well and was clearly in no apparent respiratory distress, pale, but no jaundice, cyanosis, or thyromegaly. No jugular venous distention. No limb edema. VITAL SIGNS: Her heart rate was 83, blood pressure was 114/83, temperature was 98.8, respiratory rate 20 and oxygen saturation was 93%. HEAD, EYES, EARS, NOSE AND THROAT: Normocephalic, atraumatic. NECK: Supple. HEART: Showed normal first and second heart sounds. No gallop, rub or murmur. CHEST: Clear to auscultation. No crepitation or rhonchi. ABDOMEN: Distended, soft with an ileostomy in the right lower quadrant. There is no guarding or rigidity. No organomegaly. All hernial orifices intact. Bowel sounds normal. NEUROLOGIC: She is sleepy, but arousable. All cranial nerves are intact. She moves extremities without difficulty. She ambulates without assistance or assistive devices. Her intake was 4950, no output was recorded. LABORATORY DATA: As of this morning showed a white cell count 7400, hemoglobin 9.4, hematocrit 30, MCV 83 and platelet count of 304,000. Her chemistry showed a serum sodium 140, potassium 3.8, chloride 107, bicarbonate 27, anion gap of 6, BUN 3, creatinine 0.9, estimated GFR was 64 mL per minute. Her glucose was 80, calcium was 8. Total bilirubin, AST, ALT were normal. Alkaline phosphatase slightly elevated. Total protein was 5.5, albumin was 2.3. ASSESSMENT: 1. Recurrent small-bowel obstruction, resolving. The small bowel follow through showed that the barium is in the ileostomy bag. She is tolerating her clear liquid diet. 2. Coronary artery disease. 3. Congestive heart failure. 4. Hypertension. 5. Hyperlipidemia. 6. Migraine headache. 7. Chronic renal insufficiency. 8. Hypothyroidism. 9. Bipolar disorder. PLAN: To advance diet to full liquid diet for lunch and soft diet at dinner and we will decide on further management accordingly. MAGDALENA PARADA MD DR: CLARA/marlon JOB#: [id number] / [id number]
[2017-03-22 14:56] VITALS: BP 119/71
[2017-03-22] MEDS: HYDROmorphone PF 2 MG/ML VIAL IV PRN ×2 (17:17→23:18)
[2017-03-22 17:39] VITALS: BP 114/72
[2017-03-22] MEDS: AMITRIPTYLINE HCL 25 MG TABLET PO SCH (20:50)
[2017-03-23] MEDS: oxyCODONE/APAP 10/325 1 TAB TABLET PO PRN ×2 (03:09→07:27)
[2017-03-23] MEDS: LEVOTHYROXINE 50 MCG TABLET PO SCH (05:10)
[2017-03-23 05:11] VITALS: BP 109/71
[2017-03-23] MEDS: ALBUTEROL SULFATE 2.5 MG/3 ML NEBU. NEB SCH ×2 (06:32→12:18)
[2017-03-23] MEDS: FLUTICASONE 50MCG/NASAL SPRAY 16GM BOTTLE. NS SCH (07:25)
[2017-03-23] MEDS: ASPIRIN 325 MG TABLET PO SCH (07:25)
[2017-03-23] MEDS: CLOPIDOGREL BISULFATE 75 MG TABLET PO SCH (07:25)
[2017-03-23] MEDS: FAMOTIDINE 20 MG/2 ML VIAL IVP SCH (07:25)
[2017-03-23] MEDS: traMADol 50 MG TABLET PO SCH (07:26)
[2017-03-23] MEDS: CITALOPRAM 20 MG TABLET. PO SCH (07:26)
[2017-03-23] MEDS: LORazepam 0.5 MG TABLET PO SCH (07:26)
[2017-03-23] MEDS: CETIRIZINE HCL 10 MG TABLET PO SCH (07:26)
[2017-03-23] MEDS: PANTOPRAZOLE 40 MG TABLET. PO SCH (07:26)
[2017-03-23] MEDS: OMEGA-3 FATTY ACIDS/FISH OIL 1,000 MG CAPSULE. PO SCH (07:26)
[2017-03-23] MEDS: VITAMIN E. 400 UNIT CAPSULE. PO SCH (07:26)
[2017-03-23] MEDS: RANOLAZINE 500 MG TAB.ER.12H PO SCH (07:26)
[2017-03-23] MEDS: FERROUS SULFATE 325 MG TABLET PO SCH (07:27)
[2017-03-23] MEDS ORDERED: FUROSEMIDE 20 MG TABLET PO SCH (09:00)
[2017-03-23] MEDS: GABAPENTIN 300 MG CAPSULE. PO SCH (09:09)
--- NOTE | 2017-03-23 19:29 | DS ---
DATE OF DISCHARGE: 03/23/2017 HOSPITAL COURSE: The patient is a 61-year-old female patient who was admitted with another episode of small-bowel obstruction due to adhesions. She has had an NG tube placed to suction and started, kept n.p.o. and treated with IV fluid and she did very well. She has had barium for small bowel follow through which showed that the barium has made it all the way to the ileostomy bag and we did start her on a clear liquid diet that was advanced gradually to full liquid and eventually to soft diet. She has tolerated that very well. She has no further episodes of nausea, vomiting, no abdominal pain and a decision was made to discharge her home. PHYSICAL EXAMINATION: GENERAL: When I saw her this afternoon, she was sitting up in her bed, eating her lunch comfortably in no apparent distress. She was pale, but no jaundice, cyanosis, or thyromegaly. No jugular venous distention. No limb edema. VITAL SIGNS: Her heart rate was 86, blood pressure was 109/71, temperature was 98.2, respiratory rate was 16 and oxygen saturation was 93% on room air. The rest of clinical examination is stable and unremarkable. Her intake was 4000, no output was recorded. LABORATORY DATA: Showed a white cell count of 7400, hemoglobin 9.4, hematocrit 30.5, MCV 83 and platelet count of 304,000. Her serum sodium was 140, potassium 3.8, chloride 107, bicarbonate 27, anion gap of 6, BUN 3, creatinine 0.9, estimated GFR was 64 mL per minute. Her glucose was 80, calcium was 8. Total bilirubin, AST, ALT were normal. Alkaline phosphatase was 131, total protein was 5.5 and albumin 2.3. DISCHARGE MEDICATIONS: She was discharged home to continue on following medications: Acyclovir 800 mg 3 times a day and acyclovir cream applied topically 5 times a day, albuterol sulfate 1.25 mg in 3 mL by nebulizer twice a day, amitriptyline 25 mg at bedtime, aspirin 325 mg once a day, biotin 2000 mcg p.o. daily, she is on citalopram hydrobromide 40 mg daily, Plavix 75 mg once a day, cranberry extract 200 mg once a day, diltiazem hydrochloride 120 mg p.o. b.i.d., ferrous sulfate 325 mg once a day, fexofenadine 180 mg once a day, furosemide 20 mg every other day, gabapentin 300 mg 3 times a day, levothyroxine sodium or Synthroid 50 mcg once a day, lorazepam 0.5 mg daily, Latuda 40 mg at bedtime, nitroglycerin every 5 minutes' time 0.4 mg per hour patch q. 24 hour, omega 3 fatty acid 1 capsule once a day, omeprazole 20 mg once a day, ondansetron 4 mg every 4 hours, oxycodone/APAP 10/325 one every 4 hours as needed, promethazine 25 mg every 6 hours, ranolazine or Ranexa 500 mg twice a day, tramadol 50 mg twice a day, triamcinolone acetonide or Nasacort one spray to each nostril once a day and vitamin E 400 units once a day. FINAL DISCHARGE DIAGNOSES: 1. Recurrent small-bowel obstruction, resolved. 2. Other medical problems include coronary artery disease. 3. Congestive heart failure. 4. Hypertension. 5. Hyperlipidemia. 6. Migraine headaches. 7. Chronic renal insufficiency. 8. Hypothyroidism. 9. Bipolar disorder. MAGDALENA PARADA MD DR: CLARA/marlon JOB#: [id number] / [id number]
== END 2017-03-23 12:10 | disposition home or self-care (01) | DRG 388 ==
LOC: ER 10:00 → ICU 11:59
PROVIDERS: ADMIT Family Medicine; ATTEND Family Medicine
PROC: 0D9670Z Drainage of Stomach with Drainage Device, Via Natural or Artificial Opening (ICD-10-PCS; principal; 2017-03-21)
PROC: 0DH67UZ Insertion of Feeding Device into Stomach, Via Natural or Artificial Opening (ICD-10-PCS; 2017-03-21)
DX: K56.5 Intestinal adhesions [bands] with obstruction (postinfection) (principal); N17.0 Acute kidney failure with tubular necrosis; E43 Unspecified severe protein-calorie malnutrition; I13.0 Hypertensive heart and chronic kidney disease with heart failure and stage 1 through stage 4 chronic kidney disease, or unspecified chronic kidney disease; I50.9 Heart failure, unspecified; K21.9 Gastro-esophageal reflux disease without esophagitis; I25.10 Atherosclerotic heart disease of native coronary artery without angina pectoris; G43.909 Migraine, unspecified, not intractable, without status migrainosus; E78.5 Hyperlipidemia, unspecified; E78.00 Pure hypercholesterolemia, unspecified; E03.9 Hypothyroidism, unspecified; F17.210 Nicotine dependence, cigarettes, uncomplicated; F31.9 Bipolar disorder, unspecified; D72.829 Elevated white blood cell count, unspecified; E86.0 Dehydration; F41.9 Anxiety disorder, unspecified; Z60.2 Problems related to living alone; M19.90 Unspecified osteoarthritis, unspecified site; M79.7 Fibromyalgia; Z82.49 Family history of ischemic heart disease and other diseases of the circulatory system; Z93.2 Ileostomy status; Z88.0 Allergy status to penicillin; Z88.2 Allergy status to sulfonamides; Z88.8 Allergy status to other drugs, medicaments and biological substances; Z88.1 Allergy status to other antibiotic agents; Z91.041 Radiographic dye allergy status; Z90.49 Acquired absence of other specified parts of digestive tract; N18.2 Chronic kidney disease, stage 2 (mild)
CPT/HCPCS: 36415; 74022; 74176; 74250; 80053; 83690; 83735; 84443; 85007; 85027; 87641; 94640; 96361; 96374; 96375; J1170; J1650; J2405; J2765; J3010; J3030; J7613; Q0169; S0028; 99285-25; J7030

== ENCOUNTER → 2017-08-15 | Outpatient (CLI) | payer OTHER ==
[~2017-08-15] MED LIST changes: +ALBU1.25 NEB
--- NOTE | 2017-08-15 13:45 | RAD ---
Pelvic x-rays Indication: Right hip pain for 2 months. No injury, fibromyalgia. Technique: AP pelvis and single view of the right hip joint Comparison: CT abdomen/pelvis from 03/20/2017 Findings: There is mild bilateral superior joint space narrowing in the hip joints, left greater than right with acetabular sclerosis. No acute fracture or dislocation. Surgical clips are seen projecting over the right iliac fossa. Mild bilateral SI joint osteoarthritis. Impression: No acute fractures. Mild bilateral hip joint osteoarthritis, left more than right.
== END | disposition home or self-care (01) ==
LOC: DXRADRC 13:24
PROVIDERS: ATTEND Family Medicine
DX: M16.11 Unilateral primary osteoarthritis, right hip (principal); M79.7 Fibromyalgia
CPT/HCPCS: 73501

== ENCOUNTER → 2017-09-20 | Outpatient (CLI) | payer OTHER ==
--- NOTE | 2017-09-20 16:39 | RAD ---
3 views of the lumbar spine Indications: Chronic back pain for years. Findings: The transverse processes are intact. No compression fracture or discitis or osteolytic process or anterolisthesis is seen. Mild degenerative endplate spurring is seen from L1-2 down through L3-4. Mild degenerative endplate spurring and disc space narrowing is seen at L5-S1. IMPRESSION: Mild degenerative lumbar spondylosis.
== END | disposition home or self-care (01) ==
LOC: DXRAD 12:14
PROVIDERS: ATTEND Family Medicine
DX: M47.896 Other spondylosis, lumbar region (principal); M53.87 Other specified dorsopathies, lumbosacral region
CPT/HCPCS: 72100

== ENCOUNTER 2017-10-13 18:08 | Emergency (ER) | payer OTHER ==
[~2017-10-13] VITALS: Ht 165.1 cm; Wt 92.1 kg
[2017-10-13 18:20] VITALS: BP 125/82
[2017-10-13] MEDS ORDERED: HYDR-965 PO (18:45)
[2017-10-13] MEDS ORDERED: HYDROcodone/APAP 10/325 1 TAB TABLET PO ONE (18:45)
[2017-10-13] MEDS ORDERED: HYDROcodone/APAP 10/325 1 TAB TABLET ONE (18:50)
--- NOTE | 2017-10-13 18:50 | PHYS DOC ---
General Chief Complaint: ELBOW PROBLEM Stated Complaint: ARM INJURY Time Seen by MD: 18:26 Source: patient Exam Limitations: no limitations Problems: History of Present Illness Initial Comments Pt is 62/F to ED c/o fall injury. Pt states just before ED arrival she went outdoors at home to sit in a chair and while in the process of sitting down she "missed the chair." She says she tried to catch herself with her hands but was unable to and fell landing primarily on her left elbow versus concrete. She denies head trauma loss of consciousness headache or neck pain, no hip or back pain, and in fact no other injuries. She states her tetanus is up-to-date. Complains of pain and swelling at the left elbow she does have a scabbed abrasion at the site as well. No numbness tingling weakness or radiating symptoms at the left arm and no shoulder discomfort. Pain is described as sharp and severe, she is able to fully flex and extend as well as pronate and supinate her left upper extremity. States she follows with Dr. Chacon. Onset: this afternoon Severity: severe Pain/Injury Location: left elbow Method of Injury: direct blow, fell Modifying Factors: worse with jarring, worse with movement, improves with rest Allergies: Coded Allergies: Penicillins (Verified Allergy, Intermediate, hives, short of air, 09/09/16 ) Sulfa (Sulfonamide Antibiotics) (Verified Allergy, Intermediate, hives, ) atorvastatin (Verified Allergy, Intermediate, hives, 09/09/16) clonazepam (Verified Allergy, Intermediate, hives, short of air, 09/09/16) erythromycin base (Verified Allergy, Intermediate, hives, 08/16/16) fenofibrate (Verified Allergy, Intermediate, hives, 08/16/16) iodine (Verified Allergy, Intermediate, hives, short of air, 08/16/16) loratadine (Verified Allergy, Intermediate, hives, short of air, 08/16/16) pregabalin (Verified Allergy, Intermediate, hives, 08/16/16) rosuvastatin (Verified Allergy, Intermediate, hives, 08/16/16) sertraline (Verified Allergy, Intermediate, hives, 08/16/16) silver sulfadiazine (Verified Allergy, Intermediate, hives, 08/16/16) simvastatin (Verified Allergy, Intermediate, hives, 08/16/16) Past Medical History Medical History: fibromyalgia Surgical History: cholecystectomy, other Social History Smoker: cigarettes Alcohol: none Drugs: none Review of Systems Constitutional: denies chills, denies fever, denies malaise Respiratory: denies cough, denies shortness of breath Cardiovascular: denies chest pain, denies palpitations Gastrointestinal: denies nausea, denies vomiting Musculoskeletal: see HPI Skin: see HPI Psychiatric/Neurological: see HPI Physical Exam General Appearance: mild distress, obese Neck: non-tender, supple Cardiovascular/Respiratory: normal peripheral pulses, no respiratory distress Shoulder: normal inspection, non-tender Elbow/Forearm: bone tenderness, soft tissue tenderness, swelling (left olecranon bursal swelling and warmth, no palpable bony deformity, collateral ligaments appear to be intact range of motion is normal) Neurologic/Tendon: normal sensation, normal motor functions, normal tendon functions, no evidence tendon injury Psychiatric: alert, oriented x 3 Skin: warm/dry (2 cm superficial clean abrasion at the left olecranon no foreign bodies or active bleeding) Orders, Labs, Meds Left elbow: No obvious dislocated fracture interpreted by Dr. Maloney. I discussed negative imaging studies with the patient. She is requesting pain medications. I discussed the use of the sling as well as activity modification and naol-kff-bimhopo/prescription medications. Signs and symptoms to monitor as well as indications for urgent return to the department were discussed and the patient's questions were answered to her satisfaction. I advised her stop smoking and she expressed agreement and understanding of treatment plan. After the patient was discharged I received a phone call from the pharmacist. She notified me that she last received oxycodone prescription on September 21 and wanted to know whether to fill the prescription. After discussing this issue with the pharmacist and the objective findings of traumatic injury it was determined that the prescription would be filled. Pharmacist stated she would contact Dr. Chacon and I agreed to document our conversation for his review as he shares our EMR. Departure Time of Disposition: 18:47 Disposition: 01 HOME, SELF-CARE Diagnosis: left elbow contusion, abrasion, mechanical fall Condition: GOOD Patient Instructions: Elbow Contusion, RICE - Routine Care for Injuries, Easy- to-Read Additional Instructions: Please review the patient education materials given by ED staff. RICE, see handout. Wear left arm sling as needed for symptom control. Keep her left elbow abrasion clean and dry. Prescription: norco 7.5mg #15 Follow-up with Dr. Chacon on Tuesday for recheck. Return to ED with new or changing symptoms. GURDEEP MALONEY DO Oct 13, 2017 18:50
--- NOTE | 2017-10-14 08:19 | RAD ---
ELBOW LEFT 3V Clinical Indication: fall, left elbow Comparison: None. Findings: No acute fracture or malalignment. The joint spaces are maintained. Bony mineralization is normal for the patient's age. Mild soft tissue swelling posterior to the olecranon. No radiopaque foreign body. IMPRESSION: 1. No acute fracture or malalignment. 2. Mild soft tissue swelling posterior to the olecranon.
== END 2017-10-13 19:03 | disposition home or self-care (01) ==
LOC: ER 18:08
DX: S50.02XA Contusion of left elbow, initial encounter (principal); M79.7 Fibromyalgia; F17.210 Nicotine dependence, cigarettes, uncomplicated; Z88.0 Allergy status to penicillin; Z88.2 Allergy status to sulfonamides; Z88.1 Allergy status to other antibiotic agents; Z88.8 Allergy status to other drugs, medicaments and biological substances; Z91.041 Radiographic dye allergy status; W19.XXXA Unspecified fall, initial encounter; Y93.89 Activity, other specified; Y99.8 Other external cause status; Y92.89 Other specified places as the place of occurrence of the external cause
CPT/HCPCS: 73080; 99284

== ENCOUNTER → 2017-12-13 | Outpatient (CLI) | payer OTHER ==
[~2017-12-13] MED LIST changes: +HYDR-965 PO
--- NOTE | 2017-12-21 14:25 | RAD ---
DATE: 12/13/2017 EXAM: MAMMO ANTONIA SCREENING BILATERAL HISTORY: Routine screening COMPARISON: 09/19/2015 This study was interpreted with the benefit of Computerized Aided Detection (CAD). FINDINGS: Breast Density: SCATTERED The breast parenchyma shows scattered fibroglandular densities. Breast parenchyma level B. There is a small nodule or intramammary lymph node identified in the right upper outer breast, which is new compared to prior exam of 2014. IMPRESSION: A small nodule or intramedullary lymph node identified in the right upper outer breast and new compared to prior exam. Recommend right breast ultrasound. BI-RADS CATEGORY: 0 INCOMPLETE: NEEDS ADDITIONAL IMAGING EVALUATION AND/OR PRIOR MAMMOGRAMS FOR COMPARISON. RECOMMENDED FOLLOW-UP: ADD ADDITIONAL IMAGING PQRS compliance statement: Patient information was entered into a reminder system with a target due date immediate recall for the next mammogram. Mammography is a sensitive method for finding small breast cancers, but it does not detect them all and is not a substitute for careful clinical examination. A negative mammogram does not negate a clinically suspicious finding and should not result in delay in biopsying a clinically suspicious abnormality. "Our facility is accredited by the [employer] Mammography Program."
== END | disposition home or self-care (01) ==
LOC: MAMMO 13:50
PROVIDERS: ATTEND Family Medicine
DX: Z12.31 Encounter for screening mammogram for malignant neoplasm of breast (principal); F17.210 Nicotine dependence, cigarettes, uncomplicated
CPT/HCPCS: 77063; 77067

== ENCOUNTER → 2017-12-26 | Outpatient (CLI) | payer OTHER ==
[~2017-12-26] MED LIST changes: -FERR-26 PO; +FERR325T14 PO
--- NOTE | 2017-12-26 16:07 | RAD ---
EXAM: Right breast ultrasound. HISTORY: Nodule on mammographic screening. Sonography is requested. COMPARISON: 12/13/2017, 09/19/2015. FINDINGS: Sonographic evaluation of the right upper outer breast was performed at the site of mammographic concern. At the 11:00 position 16 cm from the nipple, the juice packaging machines setter notes a slightly hyperechoic region measuring 9 x 5 mm. This is larger than the mammographic finding and may represent only a normal lobule of fat. No clear correlate for the mammographic lesion is identified. There is no suspicious sonographic finding. IMPRESSION: 1. BI-RADS Category 3: Probably benign findings. 2. Recommend 6 month follow-up right mammography to confirm stability of a small nodule superolaterally without a sonographic correlate.
== END | disposition home or self-care (01) ==
LOC: US 14:59
PROVIDERS: ATTEND Family Medicine
DX: R92.8 Other abnormal and inconclusive findings on diagnostic imaging of breast (principal)
CPT/HCPCS: 76641

== ENCOUNTER 2018-03-22 20:24 | Observation (INO) | payer OTHER ==
[~2018-03-22] VITALS: Ht 165.1 cm; Wt 88.6 kg
[~2018-03-22 20:24] MED LIST changes: +OXYC-411 PO; -OXYC1TAB9 PO
[2018-03-22 20:54] LABS: BASO # 0.1 x10^3/uL (0.0-0.2); BASO % 1 % (0-3); EOS # 0.1 x10^3/uL (0.0-0.7); EOS % 0 % (0-3); HEMATOCRIT 42.9 % (36.0-47.0); HEMOGLOBIN 13.8 g/dL (12.0-15.5); LYMPH # 4.3 x10^3/uL (1.0-4.8); LYMPH % 34 % (24-48); MEAN CORPUSCULAR HEMOGLOBIN 28 pg (25-35); MEAN CORPUSCULAR HGB CONC 32 g/dL (31-37); MEAN CORPUSCULAR VOLUME 88 fL (79-100); MONO # 1.2 x10^3/uL (0.0-1.1); MONO % 10 % (0-9); NEUT # 6.9 x10^3uL (1.8-7.7); NEUT % 55 % (31-73); PLATELET COUNT 576 x10^3/uL (140-400); RED BLOOD COUNT 4.88 x10^6/uL (3.50-5.40); RED CELL DISTRIBUTION WIDTH 19.6 % (11.5-14.5); WHITE BLOOD COUNT 12.4 x10^3/uL (4.0-11.0)
--- NOTE | 2018-03-22 20:57 | PHYS DOC ---
Past History Past Medical History: Asthma, Fibromyalgia, High Cholesterol, Hypotension, FL Past Surgical History: No Surgical History, Appendectomy, Cholecystectomy, Colectomy, Hysterectomy Smoking: Cigarettes Alcohol Use: None Drug Use: None Adult General Chief Complaint Chief Complaint: CHEST PAIN [facility] HPI 62-year-old female presents with chest pain. She had some mild chest pain and dizziness yesterday. This feeling has been increasing since about 2 PM today. She now describes the chest pain as a heaviness. She has some radiation to her left arm. She has had diaphoresis and shortness of breath. The patient has a significant cardiac history with multiple stents and previous FL. She states that the pain feels similar to when she had occluded stents in the past. She took nitroglycerin at 2 PM and 7 PM. Each time, it improved her chest pain to or out of 10. She was given 325 of aspirin in the ambulance. Her pain is currently 4 out of 10. She denies fever, chills, diarrhea, vomiting. Review of Systems Review of Systems Constitutional: Denies fever or chills [] Eyes: Denies change in visual acuity, redness, or eye pain [] HENT: Denies nasal congestion or sore throat [] Respiratory: Denies cough or shortness of breath [] Cardiovascular: No additional information not addressed in HPI [] GI: Denies abdominal pain, nausea, vomiting, bloody stools or diarrhea [] : Denies dysuria or hematuria [] Musculoskeletal: Denies back pain or joint pain [] Integument: Denies rash or skin lesions [] Neurologic: Denies headache, focal weakness or sensory changes [] Endocrine: Denies polyuria or polydipsia [] All other systems were reviewed and found to be within normal limits, except as documented in this note. Current Medications Current Medications See nursing notes Allergies Allergies Allergies Coded Allergies Type Severity Reaction Last Updated Verified Penicillins Allergy Intermediate hives, short of air 09/09/16 Yes Sulfa (Sulfonamide Antibiotics) Allergy Intermediate hives 09/09/16 Yes atorvastatin Allergy Intermediate hives 09/09/16 Yes clonazepam Allergy Intermediate hives, short of air 09/09/16 Yes erythromycin base Allergy Intermediate hives 08/16/16 Yes fenofibrate Allergy Intermediate hives 08/16/16 Yes iodine Allergy Intermediate hives, short of air 08/16/16 Yes loratadine Allergy Intermediate hives, short of air 08/16/16 Yes pregabalin Allergy Intermediate hives 08/16/16 Yes rosuvastatin Allergy Intermediate hives 08/16/16 Yes sertraline Allergy Intermediate hives 08/16/16 Yes silver sulfadiazine Allergy Intermediate hives 08/16/16 Yes simvastatin Allergy Intermediate hives 08/16/16 Yes Physical Exam Physical Exam Constitutional: Well developed, well nourished, no acute distress, non-toxic appearance. [] HENT: Normocephalic, atraumatic, bilateral external ears normal, oropharynx moist, no oral exudates, nose normal. [] Eyes: PERRLA, EOMI, conjunctiva normal, no discharge. [] Neck: Normal range of motion, no tenderness, supple, no stridor. [] Cardiovascular:Heart rate regular rhythm, no murmur [] Lungs & Thorax: Bilateral breath sounds clear to auscultation [] Abdomen: Bowel sounds normal, soft, no tenderness, no masses, no pulsatile masses. [] Skin: Warm, dry, no erythema, no rash. [] Back: No tenderness, no CVA tenderness. [] Extremities: No tenderness, no cyanosis, no clubbing, ROM intact, no edema. [] Neurologic: Alert and oriented X 3, normal motor function, normal sensory function, no focal deficits noted. [] Psychologic: Affect normal, judgement normal, mood normal. [] Current Patient Data Vital Signs Vital Signs Date Time Temp Pulse Resp B/P (MAP) Pulse Ox O2 Delivery O2 Flow Rate FiO2 03/22/18 20:24 99.2 104 14 97 Room Air EKG EKG Sinus tachycardia, rate 102, normal axis, no ST elevations or depressions.[] Radiology/Procedures Radiology/Procedures Preliminary read of the chest x-ray showed no acute findings.[] Course & Med Decision Making Course & Med Decision Making Pertinent Labs and Imaging studies reviewed. (See chart for details) The patient has an elevated creatinine of 2.1. Her previous creatinines according to the chart are mostly normal, but she has had elevations up to 1.9 in the past. Her troponin is negative. Her chest x-ray by my reading is negative for acute findings. I will give her 1 L normal saline for her likely acute kidney injury. Processes pending. Her EKG did not show ST elevations. Her proBNP is elevated. I have no previous for comparison. []The patient's urine has trace leukocyte esterase, but moderate epithelials. I will not treat her for infection at this time. She continues to have chest pain 3-4 out of 10. I discussed the case with Dr. Ray to the hospitalist and he has agreed to admit the patient for further observation and management. The patient is in agreement with admission. Dragon Disclaimer Dragon Disclaimer This electronic medical record was generated, in whole or in part, using a voice recognition dictation system. Departure Departure: Referrals: ISAAK DE LEON MD (PCP) DULCE LUTZ DO March 22, 2018 20:57
[2018-03-22] MEDS ORDERED: ONDANSETRON ODT 4 MG TAB.RAPDIS ONE (21:04)
[2018-03-22 21:11] LABS: ALBUMIN 3.8 g/dL (3.4-5.0); ALBUMIN/GLOBULIN RATIO 0.8 (1.0-1.7); CALCIUM 9.5 mg/dL (8.5-10.1); CREATININE 2.1 mg/dL (0.6-1.0); POTASSIUM 3.5 mmol/L (3.5-5.1); TOTAL BILIRUBIN 0.3 mg/dL (0.2-1.0); TOTAL PROTEIN 8.7 g/dL (6.4-8.2)
[2018-03-22] MEDS ORDERED: ONDANSETRON ODT 4 MG TAB.RAPDIS PO ONE (21:15)
[2018-03-22] MEDS ORDERED: IV NORMAL SALINE 1,000ML 1,000 ML IV ONE (22:00)
[2018-03-22 22:11] LABS: BACTERIA,URINE FEW /HPF (0-FEW); BILIRUBIN,URINE NEG (NEG); CLARITY,URINE CLOUDY; COLOR,URINE AMBER; GLUCOSE,URINE NEG (NEG); NITRITE,URINE NEG (NEG); UROBILINOGEN,URINE 0.2 mg/dL (0.2 mg/dL)
[2018-03-22 22:12] LABS: HYALINE CASTS, URINE MANY /HPF; SQUAMOUS EPITHELIAL CELL,UR MOD /LPF
[2018-03-23] VITALS (7 sets, daily range): BP systolic 86–117; BP diastolic 57–81
--- NOTE | 2018-03-23 00:31 | EKG ---
[address] [address] Test Date: 2018-03-22 Test Time: 20:33:57 Pat Name: ANDREW OLIVEROS Department: Room: 121 A Gender: F [employer]er: : 1955 Requested By: DULCE LUTZ Order Number: [id number] Reading MD: Ad Mcneil MD Measurements Intervals [place] Rate: 102 P: 90 ME: 132 QRS: 61 QRSD: 74 T: 36 QT: 374 QTc: 492 Interpretive Statements SINUS TACHYCARDIA Electronically Signed On 03-23-2018 13:00:40 CDT by Ad Mcneil MD
[2018-03-23] MEDS: IV NORMAL SALINE 1,000ML 1,000 ML IV SCH ×3 (01:00→21:43)
[2018-03-23] MEDS ORDERED: oxyCODONE/APAP 10/325 1 TAB TABLET PO PRN (01:00)
[2018-03-23] MEDS ORDERED: ASPI-630 PO (01:09)
[2018-03-23] MEDS ORDERED: PROP40TA PO (01:22)
[2018-03-23] MEDS ORDERED: NITROGLYCERIN SUBLINGUAL 0.4 MG BOTTLE OF 25. SL PRN (01:30)
[2018-03-23] MEDS: MORPHINE SULFATE 4 MG/ML DISP.SYRIN. IV PRN ×5 (01:38→19:51)
[2018-03-23] MEDS: ONDANSETRON PF 4 MG/2 ML VIAL. IV PRN ×2 (01:38→12:43)
[2018-03-23] MEDS ORDERED: PROMETHAZINE IM 25 MG/ML VIAL IM ONE (03:57)
[2018-03-23] MEDS: PROMETHAZINE 12.5 MG in IV NORMAL SALINE 50ML 50 ML IV PRN (04:00)
[2018-03-23] MEDS ORDERED: MORPHINE SULFATE 4 MG/ML DISP.SYRIN. ONE (06:15)
--- NOTE | 2018-03-23 07:59 | RAD ---
Portable chest, 03/22/2018: HISTORY: Chest pain Comparison is made to a study from 08/18/2016. The heart size and pulmonary vascularity are normal. No pulmonary infiltrate is seen. There is no evidence of pleural fluid. IMPRESSION: No acute cardiopulmonary abnormality is detected. Electronically signed by: Ashu Cardenas MD (03/23/2018 7:18 AM) [facility]
--- NOTE | 2018-03-23 14:19 | HP ---
ADMIT DATE: 03/22/2018 HISTORY OF PRESENT ILLNESS: The patient is a 62-year-old female patient who came to the Emergency Room complaining of what she describes as 2 days of chest pain, initially chest pressure and chest pain associated with the nausea, dry heaving, and pain in her left arm as well as diaphoresis. This symptom comes and goes. They respond to sublingual nitroglycerin and was evaluated in the Emergency Room. Her first set of cardiac enzymes was normal and the patient was admitted to do 2 more sets of cardiac enzyme, check her fasting lipid profile, and also to consult the cardiology team. Apparently, this on admission Cardiology team seen her before. PAST MEDICAL HISTORY: Significant for recurrent bowel obstruction and ileostomy, status post ileostomy; coronary artery disease, status post stent deployment; congestive heart failure; hypertension; hyperlipidemia; migraine headache; gastroesophageal reflux disease; bipolar disorder; osteoarthritis; chronic renal insufficiency; and hypothyroidism. PAST SURGICAL HISTORY: Significant for cholecystectomy, colectomy with ileostomy, and percutaneous coronary intervention with stent deployment. ALLERGIES: She is allergic to PENICILLIN, SULFA, ATORVASTATIN, CLONAZEPAM, ERYTHROMYCIN, FENOFIBRATE, IODINE, LORATADINE, PREGABALIN, RANOLAZINE, CRESTOR, SERTRALINE, SILVER SULFADIAZINE, and SIMVASTATIN. FAMILY HISTORY: Positive for hypertension. SOCIAL HISTORY: The patient quit smoking a few months ago. She does not drink alcohol or use any drugs. She is retired from [employer]. She lives with her , son, and grandson. MEDICATIONS: She is currently on following medications: She is on promethazine 25 mg tablet every 6 hours as needed, fexofenadine for Tatiana 180 mg once a day, acyclovir 800 mg 3 times a day, albuterol sulfate 1.25 mg by nebulizer twice a day, Ranexa 500 mg twice a day, omega-3 fatty acid 1 capsule daily, nitroglycerin 0.4 mg sublingually as needed for chest pain, Propranolol 40 mg twice a day, diltiazem 120 mg b.i.d., aspirin 81 mg once a day, oxycodone/CPAP 10/325 one tablet every 4 hours, tramadol 50 mg twice a day, gabapentin 300 mg 3 times a day, amitriptyline 25 mg at bedtime, citalopram hydrobromide 40 mg daily, Latuda 40 mg at bedtime, lorazepam 0.5 mg daily, furosemide 20 mg daily, Nasacort 1 spray to each nostril daily, ondansetron 4 mg every 4 hours, omeprazole 20 mg daily, levothyroxine sodium 50 mcg daily, acyclovir for Zovirax applied topically 5 times a day as needed, Biotin 2500 mcg capsules daily, vitamin E 800 mg once a day, cranberry extracts 100 mg once a day. REVIEW OF SYSTEMS: As per history of present illness. PHYSICAL EXAMINATION: GENERAL: On arrival to the Emergency Room, the patient looked well and was clearly in no apparent respiratory distress, slightly pale, no jaundice, cyanosis, or thyromegaly. No jugular venous distension. No limb edema. VITAL SIGNS: Her heart rate was 104, blood pressure was 114/81, temperature was 99.2, respiratory rate was 14, and oxygen saturation was 97%. HEAD, EYES, EARS, NOSE, AND THROAT: Normocephalic, atraumatic. NECK: Supple. HEART: Showed normal first and second heart sounds with no gallop, rub, or murmur. CHEST: Clear to auscultation. No crepitation or rhonchi. ABDOMEN: Distended, soft, nontender. No guarding or rigidity. No organomegaly. All hernial orifice intact. Bowel sounds normal. NEUROLOGIC: She was awake, alert, responding appropriately. Cranial nerves intact. She moves extremities without difficulty. She ambulates without assistance or assistive devices. LABORATORY DATA: On admission showed a white cell count 12,400, hemoglobin 14, hematocrit 42, MCV 88, and platelet count 579,000. Her chemistry showed a serum sodium 135, potassium 3.5, chloride 98, bicarbonate 22, anion gap of 15, BUN 24, creatinine 2.1, estimated GFR was 24 mL per minute, her glucose 127, calcium was 9.5. Total bilirubin, AST, ALT were normal. Alkaline phosphatase slightly elevated. Her first set of cardiac enzymes showed troponin to be less than 0.017. Beta natriuretic peptide was 849. Total protein was 8.7, albumin was 3.8. Urinalysis showed that the urine was maggie, cloudy with a pH of 5.5, specific gravity 1.025. There is small amount of protein, negative for glucose, trace of ketones, negative for blood, nitrite. There is a small amount of leukocyte esterase, 0-5 rbc's, 5-10 wbc's, and few bacteria. Her chest x-ray showed the patient has heart size and pulmonary vascularity are normal. No pulmonary infiltrate is seen. There is no evidence of pleural effusion. ASSESSMENT AND PLAN: The patient was admitted to do 2 more sets of cardiac enzyme, to check fasting lipid profile, and consult the Cardiology team for further evaluation and treatment. MAGDALENA PARADA MD DR: CLARA/marlon JOB#: [id number] / [id number]
--- NOTE | 2018-03-23 15:15 | PDOC2 ---
MARTHA JACOBSON PHYSICIAN REPRESENTATIVE 03/23/18 1514: CONSULT Date of Admission DATE: 03/23/18 TIME: 15:07 Referring Physician: Dr Kebede Problem List Problems Medical Problems: (1) Chest pain in adult Status: Acute History of Present Illness This is a pleasant 62-year-old female who presented to the emergency room with chief complaint of chest pain. 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 Her pain started approximately 2-3 and felt like a tightening sensation that was coming and going. She was having periods of profuse sweating (not related to chest pain), cough, abdominal pain, dry heaves, and dizziness. Chest discomfort would last for a few minutes to a few hours. Could be associated with shortness of breath without vomiting. She has not taken any nitro at home and nothing seemed to make it better or worse. She finally came to the hospital because she got up from bed to walk to bathroom and 5 steps in "went out". She woke on impact to floor and had her call 911. She had a stress test and echo in december at out office that were both unremarkable and so far she has had three sets of negative enzymes. 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 Surgical History: Hernia Repair. Cholecystectomy. Appendectomy. Hysterectomy. Breast Biopsy cervical spine fusion, beverley fundoplication, thirteen surgeries to right leg, and lisis of adhesions for bowel obstruction. Family History Father - Myocardial infarction ( age: 34) Maternal Grandfather - Myocardial infarction ( age: 41) Maternal Aunt - Heart failure ( age: 72) Maternal Grandmother - Heart failure Brother - Heart failure Social History Marital status: Live alone or with others?: with others Diet: Regular Exercise level: Moderate (Notes: country heat) Smoking Status: Current some day smoker Smoker (1/2 PPD) Tobacco-years of use: 32 Alcohol intake: Occasional Caffeine intake: Moderate Review of systems-review of 10 organ systems is negative except for as in the HPI Physical Exam Patient is a 62-year-old female. GENERAL: This is a well developed, well nourished female. No apparent distress. SKIN: Warm and dry with normal skin turgor. Negative for pallor. No lesions or rashes noted. EYES: Conjunctiva are clear. Extraocular movements are intact. No xanthelasma. HEAD AND NECK: Oral mucosa is moist. There is no cyanosis. Neck is supple. Jugular venous pressure is flat. Carotid pulses are 2/2 bilaterally. No carotid bruits. There is no obvious thyromegaly. HEART: Regular rate and rhythm. Normal S1 and S2. No S3. No S4. No significant murmur. No rub. PMI is not displaced. LUNGS: Effort is good. There is symmetric expansion bilaterally. Clear to auscultation bilaterally. No wheezes. No crackles. No rhonchi. ABDOMEN: Normal active bowel sounds. Soft. Nontender. EXTREMITIES: No clubbing. No cyanosis. No edema of lower extremities. Palpable pedal pulses. MUSCULOSKELETAL: No kyphosis. No scoliosis. No localized tenderness or stiffness. Gait appears normal. NEUROLOGIC: Alert and oriented times three. Cranial nerves III-XII are grossly intact. Good motor tone and strength in the upper and lower extremities bilaterally. PSYCHOLOGIC: This is a pleasant patient with a normal affect. Procedure Documentation LEXISCAN NUCLEAR STRESS TEST IMPRESSION (12/20/2017): Small apical infarct without ischemia The summed stress score is zero. Preserved left ventricular systolic function with akinesis of the apex Ejection fraction: 57%. There is no stress induced left ventricular dilatation or increase in lung to heart ratio. There was no stress induced chest pain. There were no arrhythmias. There were no stress induced ECG changes. ECHOCARDIOGRAM IMPRESSION (12/20/2017):. This is a technically difficult study due to body habitus. There is mild concentric left ventricular hypertrophy. The apex is hypokinetic. The left ventricular systolic function is preserved with a visually estimated ejection fraction of 55-60%. There is evidence of impaired left ventricular relaxation suggestive of stage I diastolic dysfunction. There is a small pericardial effusion or epicardial fat seen. There is mild aortic valve sclerosis. The estimated pulmonary artery systolic pressure is normal at 26 mmHg. Compared to the report (images were not available for review) of the study dated 09/03/2016, the dilatation of the left atruim was not seen on this study and the left ventricular systolic function has improved. CARDIAC CATHETERIZATION (12/23/2016): 1. Normal ejection fraction overall EF 55%, but with discrete apical akinetic area. 2. The LAD is widely patent through previous stents, as opposed to the catheterization report from [place]. The distal LAD is filled adequately at this time and there are no stents in that portion of the vessel. The left dominant circumflex is large with some minor plaquing but no major stenosis. 3. Right coronary artery is known to be very small, nondominant, occluded, and was not attempted to be visualized on this catheterization. 4. Mynx closure right femoral arteriotomy site. ELECTROCARDIOGRAM (12/22/2016): Sinus rhythm with nonspecific T-wave changes. ECHOCARDIOGRAM IMPRESSION (09/03/2016): The left ventricular systolic function is mildly reduced. LVEF 40-45% The distal 1/3 of the LV is severely hypokinetic. No significant valvular disease. CARDIAC CATHETERIZATION (09/02/2016): Severe single-vessel coronary disease. Successful bare metal stenting of a severe ruptured plaque in the proximal LAD with a 0% residual lesion. Unsuccessful attempts at opening the distal LAD with distal small stents that appears to extend to the apex. Multiple balloon inflations in this area did not reopen the vessel. A second layer of stents was not placed as above. Mild to moderate disease in the left circumflex system which also supplies the right coronary territory. ELECTROCARDIOGRAM (08/03/2016): Sinus rhythm with nonspecific T-wave changes. LEXISCAN NUCLEAR STRESS TEST IMPRESSION (03/03/2012): Normal heart rate and blood pressure response. No chest pain. No arrhythmias. No ECG changes. Probably normal myocardial perfusion scan. Normal left ventricular systolic function with a calculated ejection fraction of > 70%. ECHOCARDIOGRAM IMPRESSION (07/29/2011): There is normal left ventricular chamber size and wall thickness with normal regional and global left ventricular systolic function with an estimated ejection fraction of 65%. The left ventricular diastolic parameters are consistent with possible grade I diastolic dysfunction. The left atrium appears mildly dilated. There is trace mitral and tricuspid regurgitation. The pulmonary artery systolic pressure cannot be estimated on this study. Compared to the study dated 11/26/2008, there is no significant change. CARDIAC CATHETERIZATION (10/01/2011): 1. Normal left heart pressures. 2. Patent stent in the mid to distal left anterior descending coronary artery with mild neointimal hyperplasia as outlined above. There is distal spasm of the left anterior descending coronary artery. 3. 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 4. Normal left ventricular systolic function with an estimated ejection fraction of 65-70%. 5. There is 3+ aortic regurgitation. 6. The patient's symptoms are most likely secondary to a combination of Prinzmetal's angina secondary to distal coronary spasm, as well as severe esophageal reflux disease. Assessment / Plan Chest pain - AK ruled out. She has had a recent nuclear stress test that showed normal perfusion. Likely GI in origin - add Protonix and give Velvet Glove Ischemic cardiomyopathy - Post anterior wall AK. Coronary artery disease s/p multiple SAMMY to LAD. Most recent August 2017. Plan to resume aspirin and Ranexa. Her bp is low so will go will low dose beta livier and hold off on ccb and nitro patch for now Hypercholesterolemia . Her goal LDL is < 100 mg/dL. She has tried multiple statins in the past and has been able able to tolerate Crestor, Lipitor, Zocor, Or Tricor. She should be on Praluent 75 milligrams twice a month. Acute on chronic kidney disease - Stage 3 - Giving IV fluids. GERD/Esophagitis/Gastritis/s/p fundiplication surgery/Colostomy Obesity, This will increase the patient's correction risk of possible future cardiac and non-cardiac events. Lifestyle modification with exercise, diet and weight loss was recommended to the patient. Current Medications Current Medications Ondansetron HCl (Zofran Odt) 4 mg STK-MED ONCE .ROUTE ; Start 03/22/18 at 21:04; Stop 03/22/18 at 21:05; Status DC Ondansetron HCl (Zofran Odt) 4 mg 1X ONCE PO Last administered on 03/22/18at 21: 05; Start 03/22/18 at 21:15; Stop 03/22/18 at 21:16; Status DC Sodium Chloride 1,000 ml @ 1,000 mls/hr 1X ONCE IV Last administered on at 22:12; Start 03/22/18 at 22:00; Stop 03/22/18 at 22:59; Status DC Ondansetron HCl (Zofran) 4 mg PRN Q4HRS PRN IV NAUSEA/VOMITING Last administered on 03/23/18at 12:43; Start 03/22/18 at 23:30; Stop 03/23/18 at 23:29 Sodium Chloride 1,000 ml @ 100 mls/hr Q10H IV Last administered on 03/23/18at 11:00; Start 03/23/18 at 01:00 Oxycodone/ Acetaminophen (Percocet 10/325) 1 tab PRN Q4HRS PRN PO PAIN; Start 03/23/18 at 01:00; Stop 03/23/18 at 01:28; Status DC Morphine Sulfate (Morphine 4mg Syringe) 2 mg PRN Q4HRS PRN IV PAIN Last administered on 03/23/18at 12:43; Start 03/23/18 at 01:30 Nitroglycerin (Nitrostat) 0.4 mg PRN Q5MIN PRN SL CHEST PAIN; Start 03/23/18 at 01:30 Promethazine HCl 12.5 mg/Sodium Chloride 50.5 ml @ 101 mls/hr PRN Q6HRS PRN IV NAUSEA/VOMITING Last administered on 03/23/18at 04:00; Start 03/23/18 at 03:45 Promethazine HCl (Phenergan Im) 25 mg STK-MED ONCE IM ; Start 03/23/18 at 03:57 ; Stop 03/23/18 at 03:58; Status DC Active Scripts Active Reported Propranolol Hcl 40 Mg Tablet 40 Mg PO BID Aspirin 81 Mg Tab.chew 81 Mg PO DAILY Albuterol Sulfate Neb Soln (Albuterol Sulfate) 1.25 Mg/3 Ml Vial.neb 1 Vial NEB RTBID [praluent] Ranexa (Ranolazine) 500 Mg Tab.er.12h 1 Tab PO BIDWMEALS [place] 3 Fish Oil Softgel ([place]-3 Fatty Acids/Fish Oil) 1 Each Capsule.dr 1 Cap PO DAILY may resume Amitriptyline Hcl 25 Mg Tablet 25 Mg PO QHS may resume DATE: TIME: NEXT DOSE DUE: DATE: TIME: Latuda (Lurasidone Hcl) 40 Mg Tablet 40 Mg PO QHS last dose last night next dose tonight TIME: NEXT DOSE DUE: DATE: TIME: Biotin 2,500 Mcg Capsule 2,000 Mcg PO DAILY may resume DATE: TIME: NEXT DOSE DUE: DATE: TIME: Cranberry (Cranberry Extract) 200 Mg Capsule 1 Cap PO DAILY may resume DATE: TIME: NEXT DOSE DUE: DATE: TIME: Vitamin E (Vitamin E Mixed) 400 Unit Tablet 800 Unit PO DAILY may resume DATE: TIME: NEXT DOSE DUE: DATE: TIME: Nasacort (Triamcinolone Acetonide) 10.8 Ml [place] 1 Spr NS DAILY march resume DATE: TIME: NEXT DOSE DUE: DATE: TIME: Tatiana Allergy (Fexofenadine Hcl) 180 Mg Tablet 180 Mg PO DAILY LAST DOSE GIVEN: DATE: TIME: NEXT DOSE DUE: DATE: TIME: Zovirax (Acyclovir) 5 Gm Cream..g. 1 [place] TP 5X PRN may resume as needed DATE: TIME: NEXT DOSE DUE: DATE: TIME: Acyclovir 800 Mg Tablet 800 Mg PO TID PRN resume as needed DATE: TIME: NEXT DOSE DUE: DATE: TIME: Ondansetron Odt (Ondansetron) 4 Mg Tab.rapdis 4 Mg PO Q4HRS PRN may resume DATE: TIME: NEXT DOSE DUE: DATE: TIME: Promethazine Hcl 25 Mg Tablet 25 Mg PO PRN Q6HRS PRN may resume DATE: TIME: NEXT DOSE DUE: DATE: TIME: Oxycodone-Acetaminophen 10-325 (Oxycodone Hcl/Acetaminophen) 1 Each Tablet 1 Tab PO Q4HRS PRN last dose this morning at 3:40am may resume as needed TIME: NEXT DOSE DUE: DATE: TIME: NITRO-DUR 0.4mg/hr (Nitroglycerin) 1 Each Patch.td24 0.4 Mg SL PRN PRN 1 tab q 5 min x 3 doses as needed for chest pain LAST DOSE GIVEN: DATE: TIME: NEXT DOSE DUE: DATE: TIME: Furosemide 20 Mg Tablet 20 Mg PO DAILY may resume DATE: TIME: NEXT DOSE DUE: DATE: TIME: Synthroid (Levothyroxine Sodium) 50 Mcg Tablet 50 Mcg PO DAILYAC last dose this morning next dose tomorrow TIME: NEXT DOSE DUE: DATE: TIME: Omeprazole 20 Mg Capsule.dr 20 Mg PO DAILYAC may resume DATE: TIME: NEXT DOSE DUE: DATE: TIME: Citalopram Hbr (Citalopram Hydrobromide) 40 Mg Tablet 40 Mg PO DAILY may resume DATE: TIME: NEXT DOSE DUE: DATE: TIME: Lorazepam 0.5 Mg Tablet 0.5 Mg PO DAILY may resume DATE: TIME: NEXT DOSE DUE: DATE: TIME: Tramadol Hcl (Tramadol HCl) 50 Mg Tablet 100 Mg PO BID may resume DATE: TIME: NEXT DOSE DUE: DATE: TIME: Cardizem Cd (Diltiazem Hcl) 120 Mg Cap.er.24h 120 Mg PO BID march resume DATE: TIME: NEXT DOSE DUE: DATE: TIME: Gabapentin 300 Mg Capsule 300 Mg PO TID last dose last night next dose this morning TIME: NEXT DOSE DUE: DATE: TIME: Allergies: Coded Allergies: Penicillins (Verified Allergy, Intermediate, hives, short of air, 09/09/16 ) Sulfa (Sulfonamide Antibiotics) (Verified Allergy, Intermediate, hives, ) atorvastatin (Verified Allergy, Intermediate, hives, 09/09/16) clonazepam (Verified Allergy, Intermediate, hives, short of air, 09/09/16) erythromycin base (Verified Allergy, Intermediate, hives, 08/16/16) fenofibrate (Verified Allergy, Intermediate, hives, 08/16/16) iodine (Verified Allergy, Intermediate, hives, short of air, 08/16/16) loratadine (Verified Allergy, Intermediate, hives, short of air, 08/16/16) pregabalin (Verified Allergy, Intermediate, hives, 08/16/16) rosuvastatin (Verified Allergy, Intermediate, hives, 08/16/16) sertraline (Verified Allergy, Intermediate, hives, 08/16/16) silver sulfadiazine (Verified Allergy, Intermediate, hives, 08/16/16) simvastatin (Verified Allergy, Intermediate, hives, 08/16/16) VITALS Vital Signs Date Time Temp Pulse Resp B/P (MAP) Pulse Ox O2 Delivery O2 Flow Rate FiO2 03/23/18 11:00 98.7 87 18 109/75 (86) 98 Room Air Labs Laboratory Tests Test 03/22/18 20:30 03/22/18 21:34 03/23/18 02:50 03/23/18 08:37 White Blood Count 12.4 x10^3/uL (4.0-11.0) Red Blood Count 4.88 x10^6/uL (3.50-5.40) Hemoglobin 13.8 g/dL (12.0-15.5) Hematocrit 42.9 % (36.0-47.0) Mean Corpuscular Volume 88 fL (79-100) Mean Corpuscular Hemoglobin 28 pg (25-35) Mean Corpuscular Hemoglobin Concent 32 g/dL (31-37) Red Cell Distribution Width 19.6 % (11.5-14.5) Platelet Count 576 x10^3/uL (140-400) Neutrophils (%) (Auto) 55 % (31-73) Lymphocytes (%) (Auto) 34 % (24-48) Monocytes (%) (Auto) 10 % (0-9) Eosinophils (%) (Auto) 0 % (0-3) Basophils (%) (Auto) 1 % (0-3) Neutrophils # (Auto) 6.9 x10^3uL (1.8-7.7) Lymphocytes # (Auto) 4.3 x10^3/uL (1.0-4.8) Monocytes # (Auto) 1.2 x10^3/uL (0.0-1.1) Eosinophils # (Auto) 0.1 x10^3/uL (0.0-0.7) Basophils # (Auto) 0.1 x10^3/uL (0.0-0.2) Sodium Level 135 mmol/L (136-145) Potassium Level 3.5 mmol/L (3.5-5.1) Chloride Level 98 mmol/L (98-107) Carbon Dioxide Level 22 mmol/L (21-32) Anion Gap 15 (6-14) Blood Urea Nitrogen 24 mg/dL (7-20) Creatinine 2.1 mg/dL (0.6-1.0) Estimated GFR (Cockcroft-Gault) 24.0 BUN/Creatinine Ratio 11 (6-20) Glucose Level 127 mg/dL (70-99) Calcium Level 9.5 mg/dL (8.5-10.1) Total Bilirubin 0.3 mg/dL (0.2-1.0) Aspartate Amino Transf (AST/SGOT) 28 U/L (15-37) Alanine Aminotransferase (ALT/SGPT) 29 U/L (14-59) Alkaline Phosphatase 141 U/L (46-116) Troponin I Quantitative < 0.017 ng/mL (0-0.055) < 0.017 ng/mL (0-0.055) < 0.017 ng/mL (0-0.055) CK-Gmw-V-Type Natriuretic Peptide 846 pg/mL (0-124) Total Protein 8.7 g/dL (6.4-8.2) Albumin 3.8 g/dL (3.4-5.0) Albumin/Globulin Ratio 0.8 (1.0-1.7) Urine Collection Type Unknown Urine Color [place] Urine Clarity Cloudy Urine pH 5.5 Urine Specific [place] 1.025 Urine Protein 100 mg/dl (NEG-TRACE) Urine Glucose (UA) Neg mg/dL (NEG) Urine Ketones (Stick) Trace mg/dL (NEG) Urine Blood Neg (NEG) Urine Nitrite Neg (NEG) Urine Bilirubin Neg (NEG) Urine Urobilinogen Dipstick 0.2 mg/dL (0.2 mg/dL) Urine Leukocyte Esterase Trace (NEG) Urine RBC 3-5 /HPF (0-2) Urine WBC 5-10 /HPF (0-4) Urine Squamous Epithelial Cells Mod /LPF Urine Bacteria Few /HPF (0-FEW) Urine Hyaline Casts Many /HPF Urine Mucus Marked /LPF DANIELLE DANIELLE Jr, MD 03/24/18 0637: CONSULT Assessment/Plan The patient was seen by Martha Jacobson APRN and I have reviewed her findings and plan and agree with above. Due to staffing constraints, we did not have an attending available on this day to see the patient. MD SHOAIB Jacobsen Jr., JANAE M APRN March 23, 2018 15:14 DANIELLE DANIELLE Jr, MD March 24, 2018 06:37
[2018-03-23] MEDS ORDERED: MAALOX:LIDO:APAP 6:2:1 ORAL SUSPENSION 180 ML BOTTLE. PO PRN (16:00)
[2018-03-23] MEDS: RANOLAZINE 500 MG TAB.ER.12H PO SCH (21:43)
[2018-03-23] MEDS: PROPRANOLOL 10 MG TABLET. PO SCH (21:44)
[2018-03-24] MEDS ORDERED: PROMETHAZINE IM 25 MG/ML VIAL IM ONE
[2018-03-24] MEDS: PROMETHAZINE 12.5 MG in IV NORMAL SALINE 50ML 50 ML IV PRN (00:06)
[2018-03-24] MEDS: MORPHINE SULFATE 4 MG/ML DISP.SYRIN. IV PRN ×2 (00:08→04:19)
[2018-03-24 05:51] VITALS: BP 98/65
[2018-03-24] MEDS ORDERED: PANTOPRAZOLE 40 MG TABLET. PO SCH ×2 (07:30→09:00)
[2018-03-24] MEDS ORDERED: ASPIRIN ENTERIC COATED 81 MG TABLET.DR. PO SCH (08:00)
--- NOTE | 2018-03-24 08:52 | PDOC ---
MARTHA CRAMER CLEAR COAT SPRAYER 03/24/18 0852: PROGRESS NOTES Diagnosis Problem Problems Medical Problems: (1) Chest pain in adult Status: Acute Assessment We are seeing the patient for chest pain Chest pain - NH ruled out. Pain has improved. She has had a recent nuclear stress test that showed normal perfusion. Likely GI in origin - Started Protonix yesterday. Ischemic cardiomyopathy - Post anterior wall NH. Coronary artery disease s/p multiple SAMMY to LAD. Most recent August 2017. On Aspirin. BB and Ranexa. Her bp is low so we will continue to hold off on ccb and nitro patch for now Hypercholesterolemia . Her goal LDL is < 100 mg/dL. She has tried multiple statins in the past and has been able able to tolerate Crestor, Lipitor, Zocor, Or Tricor. She should be on Praluent 75 milligrams twice a month at home. Acute on chronic kidney disease - Stage 3 - Giving IV fluids. 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 Lifestyle modification with exercise, diet and weight loss was recommended to the patient. Subjective She is feeling better today. Not so dizzy and unsteady when up. She denies shortness of breath and edema. Chest pressure is less and mostly in epigastric area radiating from her abdomen. Not related to activity and no associated symptoms of dyspnea, nausea, or diaphoresis. She has been taking IV MSO4 for abdominal chronic pain and will change to oral home dose of oxy. Objective Vital Signs Date Time Temp Pulse Resp B/P (MAP) Pulse Ox O2 Delivery O2 Flow Rate FiO2 03/24/18 05:51 99.0 73 20 98/65 (76) 96 Room Air Intake and Output 03/24/18 07:00 Intake Total 1639 ml Output Total 1000 ml Balance 639 ml IV Total 1639 ml Output Urine Total 650 ml Stool Total 350 ml # Voids 1 Abdomen: Normal bowel sounds, Soft, No tenderness (+tenderness) Heart: Regular rate, Normal S1, Normal S2 Extremities: No edema, Normal pulses General: Alert, Oriented X3, Cooperative Lungs: Clear to auscultation Psych/Mental Status: Mental status NL, Mood NL Review of Relevant I have reviewed the following items sonny (where applicable) has been applied. Labs Laboratory Tests Test 03/22/18 20:30 03/22/18 21:34 03/23/18 02:50 03/23/18 08:37 White Blood Count 12.4 x10^3/uL (4.0-11.0) Red Blood Count 4.88 x10^6/uL (3.50-5.40) Hemoglobin 13.8 g/dL (12.0-15.5) Hematocrit 42.9 % (36.0-47.0) Mean Corpuscular Volume 88 fL (79-100) Mean Corpuscular Hemoglobin 28 pg (25-35) Mean Corpuscular Hemoglobin Concent 32 g/dL (31-37) Red Cell Distribution Width 19.6 % (11.5-14.5) Platelet Count 576 x10^3/uL (140-400) Neutrophils (%) (Auto) 55 % (31-73) Lymphocytes (%) (Auto) 34 % (24-48) Monocytes (%) (Auto) 10 % (0-9) Eosinophils (%) (Auto) 0 % (0-3) Basophils (%) (Auto) 1 % (0-3) Neutrophils # (Auto) 6.9 x10^3uL (1.8-7.7) Lymphocytes # (Auto) 4.3 x10^3/uL (1.0-4.8) Monocytes # (Auto) 1.2 x10^3/uL (0.0-1.1) Eosinophils # (Auto) 0.1 x10^3/uL (0.0-0.7) Basophils # (Auto) 0.1 x10^3/uL (0.0-0.2) Sodium Level 135 mmol/L (136-145) Potassium Level 3.5 mmol/L (3.5-5.1) Chloride Level 98 mmol/L (98-107) Carbon Dioxide Level 22 mmol/L (21-32) Anion Gap 15 (6-14) Blood Urea Nitrogen 24 mg/dL (7-20) Creatinine 2.1 mg/dL (0.6-1.0) Estimated GFR (Cockcroft-Gault) 24.0 BUN/Creatinine Ratio 11 (6-20) Glucose Level 127 mg/dL (70-99) Calcium Level 9.5 mg/dL (8.5-10.1) Total Bilirubin 0.3 mg/dL (0.2-1.0) Aspartate Amino Transf (AST/SGOT) 28 U/L (15-37) Alanine Aminotransferase (ALT/SGPT) 29 U/L (14-59) Alkaline Phosphatase 141 U/L (46-116) Troponin I Quantitative < 0.017 ng/mL (0-0.055) < 0.017 ng/mL (0-0.055) < 0.017 ng/mL (0-0.055) QJ-Omh-X-Type Natriuretic Peptide 846 pg/mL (0-124) Total Protein 8.7 g/dL (6.4-8.2) Albumin 3.8 g/dL (3.4-5.0) Albumin/Globulin Ratio 0.8 (1.0-1.7) Urine Collection Type Unknown Urine Color Moira Urine Clarity Cloudy Urine pH 5.5 Urine Specific Blakely 1.025 Urine Protein 100 mg/dl (NEG-TRACE) Urine Glucose (UA) Neg mg/dL (NEG) Urine Ketones (Stick) Trace mg/dL (NEG) Urine Blood Neg (NEG) Urine Nitrite Neg (NEG) Urine Bilirubin Neg (NEG) Urine Urobilinogen Dipstick 0.2 mg/dL (0.2 mg/dL) Urine Leukocyte Esterase Trace (NEG) Urine RBC 3-5 /HPF (0-2) Urine WBC 5-10 /HPF (0-4) Urine Squamous Epithelial Cells Mod /LPF Urine Bacteria Few /HPF (0-FEW) Urine Hyaline Casts Many /HPF Urine Mucus Marked /LPF Medications Current Medications Ondansetron HCl (Zofran Odt) 4 mg STK-MED ONCE .ROUTE ; Start 03/22/18 at 21:04; Stop 03/22/18 at 21:05; Status DC Ondansetron HCl (Zofran Odt) 4 mg 1X ONCE PO Last administered on 03/22/18at 21: 05; Start 03/22/18 at 21:15; Stop 03/22/18 at 21:16; Status DC Sodium Chloride 1,000 ml @ 1,000 mls/hr 1X ONCE IV Last administered on at 22:12; Start 03/22/18 at 22:00; Stop 03/22/18 at 22:59; Status DC Ondansetron HCl (Zofran) 4 mg PRN Q4HRS PRN IV NAUSEA/VOMITING Last administered on 03/23/18at 12:43; Start 03/22/18 at 23:30; Stop 03/23/18 at 23:29 ; Status DC Sodium Chloride 1,000 ml @ 100 mls/hr Q10H IV Last administered on 03/23/18at 21:43; Start 03/23/18 at 01:00 Oxycodone/ Acetaminophen (Percocet 10/325) 1 tab PRN Q4HRS PRN PO PAIN; Start 03/23/18 at 01:00; Stop 03/23/18 at 01:28; Status DC Morphine Sulfate (Morphine 4mg Syringe) 2 mg PRN Q4HRS PRN IV PAIN Last administered on 03/24/18at 04:19; Start 03/23/18 at 01:30 Nitroglycerin (Nitrostat) 0.4 mg PRN Q5MIN PRN SL CHEST PAIN; Start 03/23/18 at 01:30 Promethazine HCl 12.5 mg/Sodium Chloride 50.5 ml @ 101 mls/hr PRN Q6HRS PRN IV NAUSEA/VOMITING Last administered on 03/24/18at 00:06; Start 03/23/18 at 03:45 Promethazine HCl (Phenergan Im) 25 mg STK-MED ONCE IM ; Start 03/23/18 at 03:57 ; Stop 03/23/18 at 03:58; Status DC Aspirin (Aspirin Enteric Coated) 81 mg DAILYWBKFT PO ; Start 03/24/18 at 08:00 Ranolazine (Ranexa) 500 mg BID PO Last administered on 03/23/18at 21:43; Start 03/23/18 at 21:00 Pantoprazole Sodium (Protonix) 40 mg DAILYAC PO ; Start 03/24/18 at 07:30 Multi-Ingredient Mouthwash/Gargle (Velvet Glove Oral Susp) 10 ml PRN QID PRN PO MOUTH PAIN; Start 03/23/18 at 16:00 Propranolol HCl (Inderal) 20 mg BID PO Last administered on 03/23/18at 21:44; Start 03/23/18 at 21:00 Promethazine HCl (Phenergan Im) 25 mg STK-MED ONCE IM ; Start 03/24/18 at 00:00 ; Stop 03/24/18 at 00:02; Status DC Active Scripts Active Reported Propranolol Hcl 40 Mg Tablet 40 Mg PO BID Aspirin 81 Mg Tab.chew 81 Mg PO DAILY Albuterol Sulfate Neb Soln (Albuterol Sulfate) 1.25 Mg/3 Ml Vial.neb 1 Vial NEB RTBID [praluent] Ranexa (Ranolazine) 500 Mg Tab.er.12h 1 Tab PO BIDWMEALS [place] 3 Fish Oil Softgel ([place]-3 Fatty Acids/Fish Oil) 1 Each Capsule.dr 1 Cap PO DAILY may resume Amitriptyline Hcl 25 Mg Tablet 25 Mg PO QHS may resume DATE: TIME: NEXT DOSE DUE: DATE: TIME: Latuda (Lurasidone Hcl) 40 Mg Tablet 40 Mg PO QHS last dose last night next dose tonight TIME: NEXT DOSE DUE: DATE: TIME: Biotin 2,500 Mcg Capsule 2,000 Mcg PO DAILY may resume DATE: TIME: NEXT DOSE DUE: DATE: TIME: Cranberry (Cranberry Extract) 200 Mg Capsule 1 Cap PO DAILY may resume DATE: TIME: NEXT DOSE DUE: DATE: TIME: Vitamin E (Vitamin E Mixed) 400 Unit Tablet 800 Unit PO DAILY may resume DATE: TIME: NEXT DOSE DUE: DATE: TIME: Nasacort (Triamcinolone Acetonide) 10.8 Ml [place] 1 Spr NS DAILY march resume DATE: TIME: NEXT DOSE DUE: DATE: TIME: Tatiana Allergy (Fexofenadine Hcl) 180 Mg Tablet 180 Mg PO DAILY LAST DOSE GIVEN: DATE: TIME: NEXT DOSE DUE: DATE: TIME: Zovirax (Acyclovir) 5 Gm Cream..g. 1 [place] TP 5X PRN may resume as needed DATE: TIME: NEXT DOSE DUE: DATE: TIME: Acyclovir 800 Mg Tablet 800 Mg PO TID PRN resume as needed DATE: TIME: NEXT DOSE DUE: DATE: TIME: Ondansetron Odt (Ondansetron) 4 Mg Tab.rapdis 4 Mg PO Q4HRS PRN may resume DATE: TIME: NEXT DOSE DUE: DATE: TIME: Promethazine Hcl 25 Mg Tablet 25 Mg PO PRN Q6HRS PRN may resume DATE: TIME: NEXT DOSE DUE: DATE: TIME: Oxycodone-Acetaminophen 10-325 (Oxycodone Hcl/Acetaminophen) 1 Each Tablet 1 Tab PO Q4HRS PRN last dose this morning at 3:40am may resume as needed TIME: NEXT DOSE DUE: DATE: TIME: NITRO-DUR 0.4mg/hr (Nitroglycerin) 1 Each Patch.td24 0.4 Mg SL PRN PRN 1 tab q 5 min x 3 doses as needed for chest pain LAST DOSE GIVEN: DATE: TIME: NEXT DOSE DUE: DATE: TIME: Furosemide 20 Mg Tablet 20 Mg PO DAILY may resume DATE: TIME: NEXT DOSE DUE: DATE: TIME: Synthroid (Levothyroxine Sodium) 50 Mcg Tablet 50 Mcg PO DAILYAC last dose this morning next dose tomorrow TIME: NEXT DOSE DUE: DATE: TIME: Omeprazole 20 Mg Capsule.dr 20 Mg PO DAILYAC may resume DATE: TIME: NEXT DOSE DUE: DATE: TIME: Citalopram Hbr (Citalopram Hydrobromide) 40 Mg Tablet 40 Mg PO DAILY may resume DATE: TIME: NEXT DOSE DUE: DATE: TIME: Lorazepam 0.5 Mg Tablet 0.5 Mg PO DAILY may resume DATE: TIME: NEXT DOSE DUE: DATE: TIME: Tramadol Hcl (Tramadol HCl) 50 Mg Tablet 100 Mg PO BID may resume DATE: TIME: NEXT DOSE DUE: DATE: TIME: Cardizem Cd (Diltiazem Hcl) 120 Mg Cap.er.24h 120 Mg PO BID may resume DATE: TIME: NEXT DOSE DUE: DATE: TIME: Gabapentin 300 Mg Capsule 300 Mg PO TID last dose last night next dose this morning TIME: NEXT DOSE DUE: DATE: TIME: Vitals/I & O Vital Sign - Last 24 Hours 03/23/18 03/23/18 03/23/18 03/23/18 11:00 15:00 19:46 19:51 Temp 98.7 98.7 98.4 Pulse 87 90 99 Resp 18 18 16 16 B/P (MAP) 109/75 (86) 102/67 (79) 117/81 (93) Pulse Ox 98 97 93 93 O2 Delivery Room Air Room Air Room Air Room Air 03/23/18 03/23/18 03/23/18 03/23/18 20:12 21:43 21:44 23:13 Temp 98.0 Pulse 99 99 82 Resp 15 B/P (MAP) 117/81 117/81 86/57 (67) Pulse Ox 97 O2 Delivery Room Air Room Air 03/24/18 03/24/18 03/24/18 03/24/18 00:08 00:38 04:19 04:49 Resp 16 14 14 O2 Delivery Room Air Room Air Room Air 03/24/18 05:51 Temp 99.0 Pulse 73 Resp 20 B/P (MAP) 98/65 (76) Pulse Ox 96 O2 Delivery Room Air Intake and Output 03/23/18 03/23/18 03/24/18 15:00 23:00 07:00 Intake Total 1023 ml 616 ml Output Total 1000 ml Balance 1023 ml -384 ml DANIELLE DANIELLE Jr, MD 03/24/18912: PROGRESS NOTES Assessment Chest pain. She had negative cardiac enzyme levels. She had a recent nuclear stress test that did not show any ischemia. This was likely noncardiac chest pain due to gastroesophageal reflux disease that may have been worsened from some vomiting. We have taken the liberty to increase her proton pump inhibitor to prescription strength. Her chest pain has resolved. She can be discharged home from a cardiac standpoint. We will arrange for follow-up in our office. Coronary artery disease. She is not having any angina. I recommend she continue on the present guideline directed medical therapy. Ischemic cardiomyopathy. She had varying degrees of left ventricular dysfunction in the past. However, her most recent noninvasive testing showed normal left ventricular function following her most recent coronary intervention. We will continue to monitor this as an outpatient. Essential hypertension. Blood pressure appears reasonably controlled with the present medications. If anything, her blood pressure is running somewhat low at times. If this persists, we may be able to decrease some of her antihypertensive medications. We can monitor this as an outpatient. Disposition. As above, from a cardiac standpoint, the patient can be discharged home. We will arrange follow-up in our office. Subjective We are seeing her for chest pain and coronary artery disease. S: Her chest pain has improved. She still has mild abdominal pain but she states this is chronic and now back to her baseline. She denies constipation. She denies dyspnea, palpitations, syncope, or lower extremity edema. She feels ready to go home. Abdomen: Normal bowel sounds, Soft, No tenderness Heart: Regular rate, Normal S1, Normal S2, No murmurs Extremities: No clubbing, No cyanosis, No edema, Normal pulses, No tenderness/ swelling General: Alert, Oriented X3, Cooperative, No acute distress HEENT: Atraumatic, EOMI Lungs: Clear to auscultation, Normal air movement Neck: No JVD, +2 carotid pulse wo bruit Neuro: Normal speech, Strength at 5/5 X4 ext, Normal tone, Cranial nerves 3-12 NL Psych/Mental Status: Mental status NL, Mood NL Skin: No rashes, No breakdown, No significant lesion MARTHA CRAMER APRN March 24, 2018 08:52 DANIELLE DANIELLE Jr, MD March 24, 2018 09:13
[2018-03-24 08:58] LABS: BASO % 1 % (0-3); EOS # 0.1 x10^3/uL (0.0-0.7); EOS % 1 % (0-3); HEMATOCRIT 32.5 % (36.0-47.0); HEMOGLOBIN 10.4 g/dL (12.0-15.5); LYMPH # 2.8 x10^3/uL (1.0-4.8); LYMPH % 41 % (24-48); MEAN CORPUSCULAR HEMOGLOBIN 29 pg (25-35); MEAN CORPUSCULAR HGB CONC 32 g/dL (31-37); MEAN CORPUSCULAR VOLUME 89 fL (79-100); MONO # 0.8 x10^3/uL (0.0-1.1); MONO % 11 % (0-9); NEUT # 3.1 x10^3uL (1.8-7.7); NEUT % 46 % (31-73); PLATELET COUNT 363 x10^3/uL (140-400); RED BLOOD COUNT 3.66 x10^6/uL (3.50-5.40); RED CELL DISTRIBUTION WIDTH 19.4 % (11.5-14.5); WHITE BLOOD COUNT 6.8 x10^3/uL (4.0-11.0)
[2018-03-24] MEDS ORDERED: OMEGA-3 FATTY ACIDS/FISH OIL 1,000 MG CAPSULE. PO SCH (09:00)
[2018-03-24] MEDS ORDERED: GABAPENTIN 300 MG CAPSULE. PO SCH (09:00)
[2018-03-24] MEDS ORDERED: FLUTICASONE 50MCG/NASAL SPRAY 16GM BOTTLE. NS SCH (09:00)
[2018-03-24] MEDS ORDERED: CETIRIZINE HCL 10 MG TABLET PO SCH (09:00)
[2018-03-24] MEDS ORDERED: FUROSEMIDE 20 MG TABLET PO SCH (09:00)
[2018-03-24] MEDS ORDERED: traMADol 50 MG TABLET PO SCH (09:00)
[2018-03-24] MEDS ORDERED: CITALOPRAM 20 MG TABLET. PO SCH (09:00)
[2018-03-24] MEDS ORDERED: ASPIRIN 81 MG TAB.CHEW PO SCH (09:00)
[2018-03-24] MEDS ORDERED: BIOTIN 2000 MCG PO SCH (09:00)
[2018-03-24] MEDS ORDERED: RANOLAZINE 500 MG TAB.ER.12H PO SCH (09:00)
[2018-03-24] MEDS ORDERED: VITAMIN E. 400 UNIT CAPSULE. PO SCH (09:00)
[2018-03-24 09:04] LABS: CREATININE 1.5 mg/dL (0.6-1.0); GFR 35.4; POTASSIUM 3.8 mmol/L (3.5-5.1)
[2018-03-24] MEDS ORDERED: LORazepam 0.5 MG TABLET PO SCH (09:15)
[2018-03-24] MEDS ORDERED: PROPRANOLOL 20 MG TABLET. PO SCH (09:15)
[2018-03-24] MEDS ORDERED: oxyCODONE/APAP 10/325 1 TAB TABLET PO PRN (09:30)
[2018-03-24] MEDS: IV NORMAL SALINE 1,000ML 1,000 ML IV SCH (09:47)
[2018-03-24] MEDS: RANOLAZINE 500 MG TAB.ER.12H PO SCH (09:56)
[2018-03-24 10:11] VITALS: BP 93/60
[2018-03-24] MEDS: PROPRANOLOL 10 MG TABLET. PO SCH (10:11)
[2018-03-24] MEDS ORDERED: LEVOTHYROXINE 50 MCG TABLET PO SCH (11:00)
--- NOTE | 2018-03-24 12:16 | DS ---
DATE OF DISCHARGE: 03/24/2018 HOSPITAL COURSE: The patient was admitted with a complaint of chest pain. She described initially it as pressure associated nausea and dry heaving, pain in his left arm as well as diaphoresis. Symptoms come and go. They respond to sublingual nitroglycerin. She was evaluated in the Emergency Room. Her first cardiac enzyme was normal. The patient was admitted to do 2 more sets of cardiac enzymes, check her fasting lipid profile, consult the cardiology. The patient did actually very well. She had 3 sets of cardiac enzymes, all that ruled out myocardial infarction. She was seen by the Cardiology team and basically, the myocardial infarction was ruled out and the pain has resolved. 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 PHYSICAL EXAMINATION: GENERAL: When I saw her today, she was sitting up in her bed, in no apparent respiratory distress, pale, but no jaundice, cyanosis, lymphadenopathy or thyromegaly. No jugular venous distension or limb edema. VITAL SIGNS: Her heart rate was 71, blood pressure was 93/60, temperature was 99, respiratory rate was 20, and oxygen saturation was 96%. HEAD, EYES, EARS, NOSE AND THROAT: Showed normocephalic, atraumatic. NECK: Supple. HEART: Showed normal first and second heart sounds with no gallop, rub or murmur. CHEST: Clear to auscultation. No crepitation or rhonchi. ABDOMEN: Distended, soft, nontender. NEUROLOGIC: She is awake, alert, responding appropriately. All cranial nerves intact. She moves extremities without difficulty. She ambulates without assistance or assistive devices. Her intake was 1500, output was 1000. LABORATORY DATA: Her chemistry showed a serum sodium of 136, potassium 3.8, chloride 103, bicarbonate 21, anion gap of 12, BUN 14, creatinine 1.5, estimated GFR was 35 mL per minute. Her glucose was 106, calcium was 8. His white cell count was 6800, hemoglobin 10, hematocrit 32, MCV 89 and platelet count of 363,000. DISCHARGE MEDICATIONS: The patient was discharged to continue on acyclovir 10 mg 3 times a day and Zovirax cream topically as needed, albuterol sulfate 1.25 mg in 3 mL by nebulizer twice a day, amitriptyline 25 mg at bedtime, aspirin 81 mg once a day, biotin 2000 mcg orally daily, citalopram hydrobromide 40 mg once a day, cranberry extract 200 mg daily, diltiazem or Cardizem CD 120 mg twice a day, fexofenadine for Tatiana 180 mg once a day, furosemide 20 mg once a day, gabapentin 300 mg 3 times a day, levothyroxine sodium 50 mcg daily, lorazepam 0.5 mg daily, Latuda 40 mg at bedtime, nitroglycerin 0.4 mg sublingually as needed for chest pain, omega-3 fatty acid for fish oil 1 capsule daily, omeprazole 20 mg daily, ondansetron 4 mg every 4 hours as needed, oxycodone/acetaminophen 10/325 one tablet every 4 hours, promethazine 25 mg every 6 hours as needed, propranolol was cut down to 20 mg twice a day and Ranexa 500 mg twice a day, tramadol 50 mg p.o. b.i.d., Nasacort 1 spray to each nostril daily, and vitamin E 800 international units p.o. daily p.r.n. FINAL DISCHARGE DIAGNOSES: Chest pain, myocardial infarction ruled out; ischemic cardiomyopathy, status post anterior wall myocardial infarction; coronary artery disease, status post multiple drug-eluting stents to left anterior descending artery, most recently in 08/2017. She is on aspirin, beta livier and Ranexa. Hypercholesterolemia, for which she is on Praluent 75 mg twice a month at home. Acute on chronic kidney injury, improving. Her creatinine is down from 2.1 to 1.4. Gastroesophageal reflux disease, esophagitis gastritis, status post fundoplication, morbid obesity. MAGDALENA PARADA MD DR: CLARA/marlon JOB#: [id number] / [id number]
[2018-03-24] MEDS ORDERED: AMITRIPTYLINE HCL 25 MG TABLET PO SCH (21:00)
[2018-03-24] MEDS ORDERED: LURASIDONE 40 MG TABLET. PO SCH (21:00)
== END 2018-03-24 14:40 | disposition home or self-care (01) ==
LOC: ER 20:24 → 1 SOUTH 23:00 → INTOOBSV 23:00
PROVIDERS: ADMIT Internal Medicine; ATTEND Internal Medicine
DX: R07.9 Chest pain, unspecified (principal); I13.0 Hypertensive heart and chronic kidney disease with heart failure and stage 1 through stage 4 chronic kidney disease, or unspecified chronic kidney disease; I50.9 Heart failure, unspecified; I25.10 Atherosclerotic heart disease of native coronary artery without angina pectoris; N18.3 Chronic kidney disease, stage 3 (moderate); I25.5 Ischemic cardiomyopathy; E78.5 Hyperlipidemia, unspecified; G43.909 Migraine, unspecified, not intractable, without status migrainosus; K21.9 Gastro-esophageal reflux disease without esophagitis; M19.90 Unspecified osteoarthritis, unspecified site; E03.9 Hypothyroidism, unspecified; Z93.3 Colostomy status; I25.2 Old myocardial infarction; J45.909 Unspecified asthma, uncomplicated; K21.0 Gastro-esophageal reflux disease with esophagitis; G89.29 Other chronic pain; F17.210 Nicotine dependence, cigarettes, uncomplicated; E78.00 Pure hypercholesterolemia, unspecified; F31.9 Bipolar disorder, unspecified; Z82.49 Family history of ischemic heart disease and other diseases of the circulatory system; Z93.2 Ileostomy status; Z95.5 Presence of coronary angioplasty implant and graft
CPT/HCPCS: 36415; 71045; 80048; 80053; 81001; 83880; 84484; 85025; 87086; 93005; 96361; 96365; 96375; 96376; 99285; G0378; J2270; J2405; J2550; Q0162; 96360; G0379; J7030

== ENCOUNTER → 2018-04-20 | Outpatient (CLI) | payer OTHER ==
[2018-03-24 10:11] VITALS: BP 93/60
[~2018-04-20] MED LIST changes: +PROP40TA PO
--- NOTE | 2018-04-20 16:14 | RAD ---
VQ Scan: Clinical History: Dyspnea, lightheadedness. Comparison: Radiograph from 04/20/2018 Technique: 33 mCi of xenon-133 was administered as an aerosol and spot views were obtained on a gamma camera for a Nuclear Medicine ventilation examination. 4.2 mCi of Tc 99m MAA was administered intravenously and spot views were obtained on the gamma camera for a Nuclear Medicine perfusion examination. Static images were reviewed as a V/Q scan in order to exclude pulmonary embolism. Findings: There is homogeneous radiotracer activity on the ventilation study. Perfusion images are homogeneous without perfusion defects. Impression: Low probability for pulmonary embolism. Electronically signed by: Keith Castro MD (04/20/2018 4:10 PM) [id number]
--- NOTE | 2018-04-20 17:28 | RAD ---
Chest, 2 views, 04/20/2018: HISTORY: Shortness of breath The heart size is normal. There is a coronary artery stent projected over the left side of the heart. The pulmonary vascularity is normal. No pulmonary infiltrate is seen. There is no evidence of pleural fluid. A surgical plate and screws is evident in the lower cervical spine. IMPRESSION: No acute cardiopulmonary abnormality is detected. Electronically signed by: Ashu Cardenas MD (04/20/2018 5:24 PM) [facility]
== END | disposition home or self-care (01) ==
LOC: NM 13:09
PROVIDERS: ATTEND Family Medicine
DX: R06.09 Other forms of dyspnea (principal); I13.0 Hypertensive heart and chronic kidney disease with heart failure and stage 1 through stage 4 chronic kidney disease, or unspecified chronic kidney disease; I50.9 Heart failure, unspecified; N18.2 Chronic kidney disease, stage 2 (mild); K21.0 Gastro-esophageal reflux disease with esophagitis; J44.9 Chronic obstructive pulmonary disease, unspecified; E78.00 Pure hypercholesterolemia, unspecified; F17.210 Nicotine dependence, cigarettes, uncomplicated; Z95.5 Presence of coronary angioplasty implant and graft; Z90.721 Acquired absence of ovaries, unilateral; Z90.49 Acquired absence of other specified parts of digestive tract; Z82.49 Family history of ischemic heart disease and other diseases of the circulatory system; Z79.82 Long term (current) use of aspirin; Z79.02 Long term (current) use of antithrombotics/antiplatelets; Z79.899 Other long term (current) drug therapy
CPT/HCPCS: 71046; 78582; 96374; A9540; A9558

== ENCOUNTER → 2018-05-24 | Outpatient (CLI) | payer OTHER ==
[2018-05-24 13:49] LABS: CALCIUM 9.1 mg/dL (8.5-10.1); CREATININE 1.7 mg/dL (0.6-1.0); GFR 30.7; MAGNESIUM 1.4 mg/dL (1.8-2.4); POTASSIUM 4.3 mmol/L (3.5-5.1)
== END | disposition home or self-care (01) ==
LOC: LAB 13:21
PROVIDERS: ATTEND Nurse Practitioner
DX: R55 Syncope and collapse (principal); I13.0 Hypertensive heart and chronic kidney disease with heart failure and stage 1 through stage 4 chronic kidney disease, or unspecified chronic kidney disease; E11.22 Type 2 diabetes mellitus with diabetic chronic kidney disease; I50.9 Heart failure, unspecified; N18.3 Chronic kidney disease, stage 3 (moderate); K21.0 Gastro-esophageal reflux disease with esophagitis; E03.9 Hypothyroidism, unspecified; E78.5 Hyperlipidemia, unspecified
CPT/HCPCS: 36415; 80048; 83735

== ENCOUNTER → 2018-06-08 | Outpatient (CLI) | payer OTHER | END | disposition home or self-care (01) | LOC: LAB 14:20 | PROVIDERS: ATTEND Nurse Practitioner | DX: E83.42 Hypomagnesemia (principal); I13.0 Hypertensive heart and chronic kidney disease with heart failure and stage 1 through stage 4 chronic kidney disease, or unspecified chronic kidney disease; E11.22 Type 2 diabetes mellitus with diabetic chronic kidney disease; I50.9 Heart failure, unspecified; N18.3 Chronic kidney disease, stage 3 (moderate); E78.5 Hyperlipidemia, unspecified; E78.00 Pure hypercholesterolemia, unspecified; E03.9 Hypothyroidism, unspecified; D50.9 Iron deficiency anemia, unspecified; G43.909 Migraine, unspecified, not intractable, without status migrainosus; E66.9 Obesity, unspecified; K21.0 Gastro-esophageal reflux disease with esophagitis | CPT/HCPCS: 36415; 83735 ==

== ENCOUNTER → 2018-10-27 | Outpatient (CLI) | payer OTHER ==
[~2018-10-27] MED LIST changes: +HYDR-3165 PO; +HYDR-3166 PO; -HYDR-965 PO; -HYDR-971 PO; +IOHEXOL 240 MG/ML 50ML VIAL. ONE; +NITR1PAT73 SL; -NITR1PAT9 SL
[2018-10-27 13:55] LABS: CREATININE 0.9 mg/dL (0.6-1.0); GFR 63.7
[2018-10-27] MEDS: IOHEXOL 300 MG/ML 75 ML VIAL. IV ONE (14:23)
--- NOTE | 2018-10-27 15:33 | RAD ---
PQRS Compliance statement: One or more of the following individualized dose reduction techniques were utilized for this examination: 1. Automated exposure control. 2. Adjustment of the mA and/or kV according to patient size. 3. Use of iterative reconstruction technique. Indication:ABD PAIN, nausea
TECHNIQUE: CT abdomen and pelvis with IV contrast with multiplanar reformats. COMPARISON: Previous exam from 12/12/2016 FINDINGS: Heart is normal in size. No pericardial or pleural effusion. Coronary artery calcifications. Clear lung bases. Diffuse hepatic steatosis. Multiple calcified granuloma seen in the spleen. Status post cholecystectomy. Pancreas within normal limits without peripancreatic inflammatory changes or focal pancreatic lesion. Adrenal glands show no focal mass. No nephrolithiasis or hydronephrosis. No enlarged retroperitoneal or pelvic adenopathy. No free pelvic fluid or ascites. 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 Right lower quadrant ostomy with parastomal herniation of the omental fat. No evidence of bowel obstruction. Status post colectomy. Urinary bladder within normal limits. Status post hysterectomy. Multiple anastomotic sutures are seen in the bowel. No suspicious bony lesion. IMPRESSION: 1. Hepatic steatosis. 2. Status post colectomy with right lower quadrant ostomy without evidence of bowel obstruction. Electronically signed by: Chucho Thompson DO (10/27/2018 3:29 PM) [facility]
== END | disposition home or self-care (01) ==
LOC: CT 13:06
PROVIDERS: ATTEND Internal Medicine Gastroenterology
DX: K76.0 Fatty (change of) liver, not elsewhere classified (principal); D73.89 Other diseases of spleen; I25.10 Atherosclerotic heart disease of native coronary artery without angina pectoris; Z90.49 Acquired absence of other specified parts of digestive tract; Z90.710 Acquired absence of both cervix and uterus
CPT/HCPCS: 36415; 74177; 82565; Q9966; Q9967

== ENCOUNTER → 2018-11-10 | Outpatient (CLI) | payer OTHER ==
[~2018-11-10] MED LIST changes: -ALBU18HF IH; +ALBU2.5V8 IH; -IOHEXOL 240 MG/ML 50ML VIAL. ONE
--- NOTE | 2018-11-10 16:16 | RAD ---
Gastric Emptying Study 11/10/2018 Indication: pt c/o nausea and fullness x 2 months. pt was given a solid test meal, egg, toast and water. Procedure: Anterior and posterior projection static images are obtained over the stomach following oral administration of 2 mCi of 99 M technetium sulfur colloid in a solid meal (egg and toast). Time points include an immediate baseline, and 1, 2, 3, and 4 hours post ingestion. Findings: There is progressive emptying of the stomach on sequential images. Percentage retention at... One hour is 49.5 % (normal 34.8-91%). Two hours 12.8% (normal 2.7-60%). Three hours 2.3% (normal 0.5-28%). Four hours 3.1% (normal 0-10%). Impression: Normal 4 hour protocol gastric emptying study. Consensus Recommendations for Gastric Emptying Scintigraphy: A Joint Report of the [place] [employer] Society and the Society of Nuclear Medicine: J. Nucl. Med. Technol. January 2008 vol. 36 no. 1 44-54 Grading for severity of delayed GE based on the 4-h value: grade 1 (mild): 11?20% retention at 4 h grade 2 (moderate): 21?35% retention at 4 h grade 3 (severe): 36?50% retention at 4 h grade 4 (very severe): >50% retention at 4 h. Electronically signed by: Thaddeus Dover MD (11/10/2018 4:12 PM) [id number]
== END | disposition home or self-care (01) ==
LOC: NM 09:47
PROVIDERS: ATTEND Internal Medicine Gastroenterology
DX: R11.0 Nausea (principal)
CPT/HCPCS: 78264; A9541

== ENCOUNTER 2019-01-12 23:53 | Inpatient (IN) | payer OTHER ==
[~2019-01-12] VITALS: Ht 165.1 cm; Wt 86.4 kg
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
[2019-01-13] MEDS ORDERED: FAMOTIDINE 20 MG/2 ML VIAL IVP ONE (00:30)
[2019-01-13] MEDS ORDERED: PROCHLORPERAZINE 10 MG/2 ML VIAL. IV ONE (00:30)
[2019-01-13] MEDS ORDERED: ONDANSETRON PF 4 MG/2 ML VIAL. IV ONE ×2 (00:30→03:00)
[2019-01-13] MEDS ORDERED: MORPHINE SULFATE 10 MG/ML SYRINGE. SQ ONE ×2 (00:30→03:00)
[2019-01-13] MEDS ORDERED: IV RINGERS SOLUTION,LACTATED 1,000 ML IV SCH (00:30)
[2019-01-13] MEDS ORDERED: CONTRAST GIVEN MC PRN (00:45)
[2019-01-13] MEDS ORDERED: methylPREDNISolone SOD SUCC PF 125 MG/2 ML VIAL. IV ONE (01:00)
[2019-01-13] MEDS ORDERED: IOHEXOL 300 MG/ML 75 ML VIAL. IV ONE (01:00)
[2019-01-13] MEDS ORDERED: IOHEXOL 240 MG/ML 50ML VIAL. PO ONE (01:00)
[2019-01-13 01:36] LABS: BASO % 0 % (0-3); EOS % 0 % (0-3); HEMATOCRIT 38.2 % (36.0-47.0); HEMOGLOBIN 12.1 g/dL (12.0-15.5); LYMPH # 1.9 x10^3/uL (1.0-4.8); LYMPH % 21 % (24-48); MEAN CORPUSCULAR HEMOGLOBIN 29 pg (25-35); MEAN CORPUSCULAR HGB CONC 32 g/dL (31-37); MEAN CORPUSCULAR VOLUME 93 fL (79-100); MONO # 0.8 x10^3/uL (0.0-1.1); MONO % 9 % (0-9); NEUT # 6.2 x10^3uL (1.8-7.7); NEUT % 70 % (31-73); PLATELET COUNT 254 x10^3/uL (140-400); RED BLOOD COUNT 4.11 x10^6/uL (3.50-5.40); WHITE BLOOD COUNT 8.9 x10^3/uL (4.0-11.0)
[2019-01-13 01:46] LABS: ALBUMIN 3.1 g/dL (3.4-5.0); CALCIUM 8.5 mg/dL (8.5-10.1); CREATININE 1.5 mg/dL (0.6-1.0); DIRECT BILIRUBIN 0.1 mg/dL (0.0-0.2); GFR 35.3; POTASSIUM 4.3 mmol/L (3.5-5.1); TOTAL BILIRUBIN 0.2 mg/dL (0.2-1.0); TOTAL PROTEIN 7.2 g/dL (6.4-8.2)
[2019-01-13 02:33] LABS: BACTERIA,URINE FEW /HPF (0-FEW); BILIRUBIN,URINE NEG (NEG); CLARITY,URINE CLEAR; COLOR,URINE YELLOW; GLUCOSE,URINE NEG (NEG); NITRITE,URINE NEG (NEG); RBC,URINE RARE /HPF (0-2); UROBILINOGEN,URINE 0.2 mg/dL (0.2 mg/dL); WBC,URINE 0 /HPF (0-4)
[2019-01-13 02:34] LABS: SQUAMOUS EPITHELIAL CELL,UR FEW /LPF
[2019-01-13 02:39] LABS: AMPHETAMINE/METHAMPHETAMINE NEG (NEG); BARBITURATES NEG (NEG); BENZODIAZEPINES NEG (NEG); CANNABINOIDS NEG (NEG); COCAINE NEG (NEG); METHADONE NEG (NEG); OPIATES POS (NEG); PHENCYCLIDINE NEG (NEG)
[2019-01-13] MEDS ORDERED: BARIUM SULFATE 2.1% 450 ML SUSP PO ONE ×2 (03:00)
--- NOTE | 2019-01-13 03:09 | RAD ---
EXAM: Frontal view of the chest, AP views of the abdomen in upright and supine positions. CLINICAL INDICATION: Abdominal pain, hx bowel resection, ileostomy, ileostomy blockage, cholecystectomy, appendectomy, total hysterectomy COMPARISON: None. FINDINGS and IMPRESSION: The heart is not enlarged. Mediastinal and hilar contours are normal. No focal parenchymal airspace opacity. No pleural effusion or pneumothorax. Cervical spine fusion hardware partially profiled. No abnormal small or large bowel dilatation. Cholecystectomy clips are seen. Moderate colonic stool content. No abnormal soft tissue mass effect. No suspicious calcifications are seen. No free intraperitoneal gas. Electronically signed by: Stevan Bridges MD (01/13/2019 3:06 AM) [id number]
--- NOTE | 2019-01-13 04:40 | RAD ---
EXAM: CT Abdomen and Pelvis without IV contrast CLINICAL HISTORY: Abdominal pain, hx bowel resection, ileostomy, ileostomy blockage, cholecystectomy, appendectomy, total hysterectomy. COMPARISON: none TECHNIQUE: Helical CT of the abdomen and pelvis was performed without the administration of intravenous contrast. Oral contrast was administered. Axial, coronal and sagittal reformatted images were generated. PQRS compliance statement - One or more of the following individualized dose reduction techniques were utilized for this study: 1. Automated exposure control 2. Adjustment of the mA and/or kV according to patient size 3. Use of iterative reconstruction technique FINDINGS: Lack of intravenous contrast limits evaluation of solid organs, vasculature, and lymph nodes. Lower chest: Linear subpleural opacities in the bilateral lower lobes likely scarring/atelectasis. No lobar consolidation. Abdomen and Pelvis: Liver is mildly enlarged measuring 19 cm in length. Hepatic hypoattenuation is also seen. Accounting for postcholecystectomy change, no biliary ductal dilatation. Pancreas is unremarkable. Calcified granuloma are seen within the spleen. Adrenal glands are normal. Within the constraints of noncontrast exam, no focal renal lesion. Bilateral extrarenal pelvis is seen without evidence for hydroureter. No renal tract calculi. Changes of right lower quadrant ileostomy are seen. Several loops of dilated small bowel are seen to the level of the ostomy suggesting at least partial obstruction. Oral contrast material has not made to the level of the osteotomy. Distal small bowel feces sign is seen also suggesting delayed motility. Bladder is unremarkable. Atherosclerotic calcifications of aorta are seen. No abdominal or pelvic lymphadenopathy. No abdominal or pelvic ascites. Bones: Degenerative changes of the spine are seen. Bilateral hip joint degenerative changes are seen. IMPRESSION: 1. Changes of right lower quadrant ileostomy with dilation of the bowel proximal to this suggesting bowel obstruction. 2. Borderline hepatomegaly 3. Accounting for postcholecystectomy change, no biliary ductal dilatation. Electronically signed by: Stevan Bridges MD (01/13/2019 4:37 AM) [facility]
[2019-01-13 05:20] VITALS: BP 105/75
[2019-01-13] MEDS: IV RINGERS SOLUTION,LACTATED 1,000 ML IV SCH ×6 (05:30→23:49)
[2019-01-13] MEDS ORDERED: midrin PO (05:50)
[2019-01-13] MEDS ORDERED: prednisone (05:52)
[2019-01-13] MEDS ORDERED: MAGN400C PO (05:52)
[2019-01-13] MEDS: IPRATRPIUM/ALBUTEROL 0.5/2.5MG 3 ML NEBU. NEB SCH ×4 (06:10→21:09)
[2019-01-13] MEDS: ONDANSETRON PF 4 MG/2 ML VIAL. IV PRN ×4 (06:19→23:43)
[2019-01-13] MEDS: MORPHINE SULFATE 4 MG/ML DISP.SYRIN. IV PRN ×6 (06:20→23:42)
[2019-01-13] MEDS ORDERED: FLUT1DIS3 IH (07:14)
--- NOTE | 2019-01-13 07:42 | RAD ---
PORTABLE CHEST 1V Clinical History: NG tube placement Technique: Upright AP view of the chest was obtained at 01/13/2019 3:01 AM. Comparison: January 13, 2019. Findings: The cardiomediastinal silhouette is normal. The pulmonary vasculature is normal. The lungs and pleural margins are clear. There is an NG tube with its has a tip that passes into the mid stomach. There are multiple air-fluid levels in the abdomen. There is no free air. Impression: No evidence of an acute cardiopulmonary process. Electronically signed by: Jaime Richey III, MD (01/13/2019 7:39 AM) [facility]
--- NOTE | 2019-01-13 09:44 | RAD ---
Acute Abdominal Series: Technique: PA view of the chest and supine and upright views of the abdomen were obtained. History: Pain. Comparison: January 13, 2019. Findings: The lungs and pleural margins are clear. There is multiple dilated air-filled loops of small bowel. There is a paucity of colonic bowel gas. There is an NG tube with its tip in the mid stomach. There is no free air. Impression: 1. NG tube well-positioned. 2. Abnormal bowel gas pattern consistent with a mid high-grade small bowel obstruction. This appears worse than on the prior study. Electronically signed by: Jaime Richey III, MD (01/13/2019 9:41 AM) [facility]
[2019-01-13 11:18] VITALS: BP 94/61
[2019-01-13 14:57] VITALS: BP 119/74
--- NOTE | 2019-01-13 15:34 | RAD ---
AP portable chest 01/13/2019. Reason for exam: NG placement. Comparison is made with a study done earlier in the day. The NG tube apparently has been retracted. It is no longer seen in the thoracic esophagus. It may be visible in the lower cervical esophagus partly superimposed on a fixation plate in the cervical spine. There is suggestion of mild infiltrate or atelectasis at the left lung base, probably similar to the prior exam. No new infiltrate or effusion is seen. Heart size is normal IMPRESSION: NG tube may be visible in cervical esophagus. Electronically signed by: Anthony Ribeiro Jr., MD (01/13/2019 3:31 PM) [facility] [place]
--- NOTE | 2019-01-13 15:50 | HP ---
ADMIT DATE: 01/13/2019 HISTORY OF PRESENT ILLNESS: The patient is a 63-year-old female patient, who came to the Emergency Room complaining of abdominal pain, nausea, dry heaving. She has not had any bowel movement for 2 days, has not had any gas. She has emptied her ileostomy once yesterday just small amount of fluid. No stool. The patient has history of small-bowel obstruction. The last time she was here was on 03/2018. She was extensively investigated in the Emergency Room. Her lab work was generally unremarkable. Her acute abdomen series showed that the heart is not enlarged. Mediastinal hilar contours are normal. No focal parenchymal airspace opacity. No pleural effusion or pneumothorax. Cervical spine fusion hardware partially profiled. No abnormal small or large bowel loop dilatation. Cholecystectomy clips are seen. Moderate colonic stool content. No abnormal soft tissue mass effect, no suspicious calcifications seen. No free intraperitoneal gas. She did have CT scan of the abdomen and pelvis, which basically showed that changes of the right lower quadrant ileostomy with dilatation of the bowel proximal to this suggesting bowel obstruction. She has borderline hepatomegaly and accounting for post-cholecystectomy changes. No biliary ductal dilatation. Her chest x-ray again showed no evidence of any cardiopulmonary problems. She has had another KUB, which showed that her NG tube well positioned, abnormal bowel gas pattern consistent with the mid high grade small-bowel obstruction. This appears worse than on the previous study. The patient was connected to intermittent suction, started on IV fluid and was admitted for observation. PAST MEDICAL HISTORY: Significant for recurrent bowel obstruction, status post ileostomy. She has coronary artery disease, status post stent deployment, congestive heart failure, hypertension, hyperlipidemia, migraine headache, gastroesophageal reflux disease, bipolar disorder, osteoarthritis, chronic renal insufficiency and hypothyroidism. PAST SURGICAL HISTORY: Significant for cholecystectomy, colectomy with ileostomy and percutaneous coronary intervention with stent deployment. ALLERGIES: She is allergic to SULFA DRUGS, PENICILLIN, ATORVASTATIN, CLONAZEPAM, ERYTHROMYCIN, FENOFIBRATE, IODINE, LORATADINE, PREGABALIN, RANOLAZINE, CRESTOR, SERTRALINE, SILVER SULFADIAZINE and SIMVASTATIN. FAMILY HISTORY: Positive for hypertension. SOCIAL HISTORY: The patient quit smoking almost a year ago. She does not drink alcohol or use any recreational drugs. She is retired from [employer]. She lives with her , son and grandson. MEDICATIONS: She is currently on following medications: She is on promethazine 25 mg every 6 hours, fexofenadine 180 mg once a day. She is on albuterol sulfate 1.25 mg in 3 mL by nebulizer twice a day, omega-3 fatty acid 1000 mg daily. She is on aspirin 81 mg once a day, oxycodone/APAP 10/325 one tablet every 4 hours, gabapentin 300 mg 3 times a day, amitriptyline 25 mg at bedtime, citalopram hydrobromide 40 mg daily. She is on Latuda 40 mg p.o. at bedtime, lorazepam 0.5 mg daily. She is on furosemide 20 mg daily p.r.n., Flonase, actually she is on Advair Diskus 250/50 one inhalation twice a day. She is on triamcinolone acetonide for Nasacort one spray to each nostril once a day. She is on magnesium oxide 400 mg twice a day, ondansetron 4 mg every 4 hours, omeprazole 20 mg daily. She is on levothyroxine sodium 50 mcg daily, Biotin 2500 mcg capsules daily, vitamin E mixed she takes 800 units p.o. daily, cranberry extract 200 mg daily. She is on midodrine 5 mg twice a day. PHYSICAL EXAMINATION: GENERAL: On arrival to the Emergency Room, she was clearly carcinoid. There is no pallor, jaundice, cyanosis, or thyromegaly. No jugular venous distension. No limb edema. VITAL SIGNS: Her heart rate was 103, blood pressure was 94/61, temperature was 98.3, respiratory rate 20, and oxygen saturation was 95% on room air. HEAD, EYES, EARS, NOSE AND THROAT: Showed normocephalic, atraumatic. She has an NG tube to her right nostril. NECK: Supple. HEART: Showed normal first and second heart sounds. No gallop, rub or murmur. CHEST: Clear to auscultation. No crepitation or rhonchi. ABDOMEN: Distended, soft with tenderness around the umbilical area. There is no guarding or rigidity. No organomegaly. All hernial orifice intact. The bowel sounds are somewhat sluggish. NEUROLOGIC: She is awake, alert, responding appropriately. All cranial nerves intact. EXTREMITIES: She moves extremities without difficulty. She ambulates without assistance or assistive devices. Her intake was 1000. No output was recorded. LABORATORY DATA: Showed a white cell count of 8900, hemoglobin 12, hematocrit 38, MCV 93, and platelet count 254,000. Her chemistry showed a serum sodium 139, potassium 4.3, chloride 104, bicarbonate 22, anion gap of 14, BUN 1.5, estimated GFR was 35 mL per minute. Her glucose 134, calcium was 8.5. Total bilirubin, AST, ALT, alkaline phosphatase were normal. Total protein was 7.2, albumin 3.1. Amylase and lipase were normal. Her white cell count was 8900, hemoglobin 12, hematocrit 38, MCV 93, and platelet count 254,000 with normal manual differential. Her prothrombin time was 9.8, INR of 1, aPTT was 23. Urinalysis showed the urine was yellow, clear with a pH of 5.5, specific gravity 1.25. The urine was negative for protein, glucose, ketones, blood and nitrite and urine toxicology screen was positive for opiates and negative for all other medication. Her acute abdomen series showed that there is no abnormal small and large bowel dilatation, cholecystectomy clips are seen. Moderate colonic stool content. No abnormal soft tissue mass effect. No suspicious calcifications are seen. No free intraperitoneal air was seen, had a CT abdomen and pelvis with oral contrast only showed that the patient has changes in the right lower quadrant ileostomy with dilation of the bowel proximal to this suggesting bowel obstruction. She has borderline hepatomegaly accounting for post-cholecystectomy changes. No biliary ductal dilatation. ASSESSMENT AND PLAN: The patient had an NG tube placed in the Emergency Room, continued intermittent suction. She was diagnosed with bowel obstruction, kept n.p.o., continue with IV fluid, IV pain medication and antiemetic. We will follow her closely and decide on further management accordingly. MAGDALENA PARADA MD DR: CLARA/marlon JOB#: [id number] / [id number]
--- NOTE | 2019-01-13 19:22 | RAD ---
CHEST AP ONLY Clinical History: NG Placement Technique: AP view of the chest was obtained at 01/13/2019 3:29 PM. Comparison: None. Findings: The cardiomediastinal silhouette is normal. The pulmonary vasculature is normal. The heart is top normal limits in size. There is hazy patchy opacity in the left lung base. The NG tube seen at least as far distal as the mid stomach. Impression: 1. NG tube adequately positioned. 2. Left basal infiltrate could be discoid atelectasis or pneumonia. Electronically signed by: Jaime Richey III, MD (01/13/2019 7:20 PM) [id number]
[2019-01-13 19:27] VITALS: BP 110/73
[2019-01-13] MEDS: HYDROCORTISONE SOD SUCC/PF 100 MG/2 ML VIAL. IV SCH (21:00)
[2019-01-13 22:35] VITALS: BP_SYST 183; BP_SYST 99; BP_DIAS 61; BP_DIAS 83
[2019-01-14] MEDS: MORPHINE SULFATE 4 MG/ML DISP.SYRIN. IV PRN ×8 (02:09→20:13)
[2019-01-14] MEDS: ONDANSETRON PF 4 MG/2 ML VIAL. IV PRN ×4 (04:49→18:40)
[2019-01-14] MEDS: IV RINGERS SOLUTION,LACTATED 1,000 ML IV SCH ×2 (04:49→10:04)
[2019-01-14] MEDS: IPRATRPIUM/ALBUTEROL 0.5/2.5MG 3 ML NEBU. NEB SCH (05:19)
[2019-01-14 07:00] VITALS: BP 99/66
[2019-01-14 07:38] LABS: BASO % 0 % (0-3); EOS % 0 % (0-3); HEMATOCRIT 34.7 % (36.0-47.0); LYMPH # 1.4 x10^3/uL (1.0-4.8); LYMPH % 23 % (24-48); MEAN CORPUSCULAR HEMOGLOBIN 30 pg (25-35); MEAN CORPUSCULAR HGB CONC 32 g/dL (31-37); MEAN CORPUSCULAR VOLUME 94 fL (79-100); MONO # 0.8 x10^3/uL (0.0-1.1); MONO % 14 % (0-9); NEUT # 3.7 x10^3uL (1.8-7.7); NEUT % 62 % (31-73); PLATELET COUNT 199 x10^3/uL (140-400); RED CELL DISTRIBUTION WIDTH 15.5 % (11.5-14.5)
[2019-01-14 07:47] LABS: ALBUMIN 2.7 g/dL (3.4-5.0); ALBUMIN/GLOBULIN RATIO 0.8 (1.0-1.7); CALCIUM 8.1 mg/dL (8.5-10.1); GFR 56.4; POTASSIUM 4.2 mmol/L (3.5-5.1); TOTAL BILIRUBIN 0.3 mg/dL (0.2-1.0); TOTAL PROTEIN 6.3 g/dL (6.4-8.2)
[2019-01-14] MEDS: HYDROCORTISONE SOD SUCC/PF 100 MG/2 ML VIAL. IV SCH ×2 (09:08→20:53)
[2019-01-14 11:17] VITALS: BP 102/71
[2019-01-14] MEDS ORDERED: POLYETHYLENE GLYCOL 3350 17 GM PACKET. PO PRN (13:30)
[2019-01-14 16:13] VITALS: BP 117/68
[2019-01-14 17:31] LABS: BILIRUBIN,URINE NEG (NEG); CLARITY,URINE CLEAR; COLOR,URINE YELLOW; GLUCOSE,URINE NEG (NEG); NITRITE,URINE NEG (NEG); UROBILINOGEN,URINE 0.2 mg/dL (0.2 mg/dL)
[2019-01-14 17:32] LABS: BACTERIA,URINE 0 /HPF (0-FEW); RBC,URINE 0 /HPF (0-2); SQUAMOUS EPITHELIAL CELL,UR OCC /LPF; WBC,URINE OCC /HPF (0-4)
--- NOTE | 2019-01-14 17:44 | PN ---
DATE: 01/14/2019 SUBJECTIVE: The patient is resting, slightly propped up in bed, in no apparent distress. She apparently passed some gas and emptied her ileostomy for the second time. She drained about 950 mL from her NG tube. She has had no nausea, no vomiting. PHYSICAL EXAMINATION: GENERAL: When I examined her, she looked well and was clearly in no apparent respiratory distress, slightly pale, but no jaundice, cyanosis, or thyromegaly. No jugular venous distension. No limb edema. VITAL SIGNS: Her heart rate was 95, blood pressure was 99/66, temperature was 98.6, respiratory rate was ____ 16, and oxygen saturation was 93% on room air. HEAD, EYES, EARS, NOSE AND THROAT: Showed normocephalic, atraumatic. She has an NG tube through the right nostril. NECK: Supple. HEART: Showed normal first and second heart sounds. No gallop, rub or murmur. CHEST: Clear to auscultation. No crepitation or rhonchi. ABDOMEN: Distended, soft with an ileostomy in the right lower quadrant with a moderate amount of liquid stool. The abdomen is soft, nontender. No guarding or rigidity. No organomegaly. Bowel sounds are audible. NEUROLOGIC: She is awake, alert, responding appropriately. All cranial nerves are intact. She moves extremities without difficulty. She ambulates without assistance or assistive devices. Her intake over the last 24 hours was 1000. No output was recorded. LABORATORY DATA: Her lab work this morning showed a white cell count of 6000, hemoglobin 11, hematocrit 34, MCV 94 and platelet count of 199,000. Serum sodium was 139, potassium 4.2, chloride 104, bicarbonate 30, anion gap of 5, BUN 13, creatinine 1, estimated GFR was 56 mL per minute. Her glucose was 82, calcium was 8.2, estimated GFR was 56. Total bilirubin, AST, ALT, alkaline phosphatase were normal. Total protein was 6.3, albumin was 2.7. ASSESSMENT: Small-bowel obstruction, resolving. PLAN: My plan is to clamp her NG tube. She can have some clear liquid for now. She has no further episodes of nausea and vomiting. She tolerated clear liquid. We can remove the NG tube and advanced later on her diet and she can be discharged home. MAGDALENA PARADA MD DR: Nat JOB#: [id number] / [id number]
--- NOTE | 2019-01-14 19:45 | RAD ---
CT of the abdomen and pelvis without contrast 01/14/2019. Reason for exam: Severe right-sided pain today. History of ileus. Helical noncontrast images were performed through the abdomen and pelvis. Exposure: One or more of the following individualized dose reduction techniques were utilized for this examination: 1. Automated exposure control 2. Adjustment of the mA and/or kV according to patient size 3. Use of iterative reconstruction technique. Comparison is made with the exam done the previous day. Exposure: One or more of the following individualized dose reduction techniques were utilized for this examination: 1. Automated exposure control 2. Adjustment of the mA and/or kV according to patient size 3. Use of iterative reconstruction technique. FINDINGS: There is mild atelectasis in the lower lobes. No new abnormality is seen within the liver or spleen. Evaluation of the solid organs is limited without IV contrast. The kidneys show no apparent mass or obstruction. The adrenal glands are not enlarged. The pancreas appears normal. No retroperitoneal or mesenteric adenopathy is seen. There is no apparent abdominal soft tissue mass. An ostomy site is again seen in the right lower quadrant and there is apparently a rectal stump at the pelvis. There continue to be dilated bowel loops mostly in the left abdomen. There are suture lines involving several loops, and oral contrast has moved distally into the dilated loops and passed some of the suture lines. There may be a small amount of contrast in the loop extending into the ostomy. The degree of bowel distention is similar to possibly slightly worse than on the prior exam. There is mild fluid or edema in the small bowel mesentery. Images through the pelvis show no apparent abnormality of the distal ureters or bladder. No pelvic or inguinal adenopathy is seen. There is probably a trace of free fluid in the pelvis. There is no pelvic mass or other inflammatory process. IMPRESSION: There continue to be some dilated bowel loops in the abdomen, thought to be small bowel. The degree of dilatation may actually be slightly worse, although contrast now appears to have extended through all the loops and into the ostomy, suggesting there is not a complete obstruction. Electronically signed by: Anthony Ribeiro Jr., MD (01/14/2019 7:43 PM) [facility]
[2019-01-14 19:48] VITALS: BP 116/74
[2019-01-14 20:54] VITALS: BP 119/83
--- NOTE | 2019-01-16 12:17 | EKG ---
[address] [address] Test Date: 2019-01-13 Test Time: 00:28:31 Pat Name: ANDREW OLIVEROS Department: Room: 120 A Gender: F Truck Dispatcher: MANUEL : 1955 Requested By: TSERING TEAGUE Order Number: [id number] Reading MD: Ad Mcneil MD Measurements Intervals [place] Rate: 101 P: 54 IL: 128 QRS: 60 QRSD: 78 T: 47 QT: 358 QTc: 465 Interpretive Statements SINUS TACHYCARDIA Electronically Signed On 01-16-2019 15:17:16 HAT CUTTER by Ad Mcneil MD
== END 2019-01-14 21:55 | disposition short-term general hospital (02) | DRG 388 ==
LOC: ER 23:53 → 1 SOUTH 01-13 00:21
PROVIDERS: ADMIT Internal Medicine; ATTEND Internal Medicine
PROC: 0D9670Z Drainage of Stomach with Drainage Device, Via Natural or Artificial Opening (ICD-10-PCS; principal; 2019-01-13)
DX: K56.609 Unspecified intestinal obstruction, unspecified as to partial versus complete obstruction (principal); N17.0 Acute kidney failure with tubular necrosis; I13.0 Hypertensive heart and chronic kidney disease with heart failure and stage 1 through stage 4 chronic kidney disease, or unspecified chronic kidney disease; I50.9 Heart failure, unspecified; E78.00 Pure hypercholesterolemia, unspecified; J44.9 Chronic obstructive pulmonary disease, unspecified; F31.9 Bipolar disorder, unspecified; F43.10 Post-traumatic stress disorder, unspecified; I25.10 Atherosclerotic heart disease of native coronary artery without angina pectoris; E78.5 Hyperlipidemia, unspecified; G43.909 Migraine, unspecified, not intractable, without status migrainosus; K21.9 Gastro-esophageal reflux disease without esophagitis; F41.9 Anxiety disorder, unspecified; M19.90 Unspecified osteoarthritis, unspecified site; E03.9 Hypothyroidism, unspecified; M79.7 Fibromyalgia; N18.9 Chronic kidney disease, unspecified; Z90.710 Acquired absence of both cervix and uterus; Z90.49 Acquired absence of other specified parts of digestive tract; Z88.0 Allergy status to penicillin; Z88.2 Allergy status to sulfonamides; Z88.8 Allergy status to other drugs, medicaments and biological substances; Z88.1 Allergy status to other antibiotic agents; Z91.041 Radiographic dye allergy status; Z98.1 Arthrodesis status; Z82.49 Family history of ischemic heart disease and other diseases of the circulatory system; Z93.2 Ileostomy status; Z87.891 Personal history of nicotine dependence; Z95.5 Presence of coronary angioplasty implant and graft
CPT/HCPCS: 36415; 71045; 74022; 74176; 80048; 80053; 80076; 80307; 81001; 82150; 82550; 83690; 84484; 85025; 85610; 85730; 93005; 94640; 96361; 96372; 96374; 96375; 96376; J0780; J2270; J2405; J2930; J3490; J7120; J7620; 99285-25

== ENCOUNTER 2019-03-02 18:47 | Emergency (ER) | payer OTHER ==
[~2019-03-02] VITALS: Ht 165.1 cm; Wt 87.6 kg
[~2019-03-02 18:47] MED LIST changes: +MAGN400C PO; +midrin PO; +prednisone
--- NOTE | 2019-03-02 19:24 | PHYS DOC ---
Past History Past Medical History: Arthritis, Bipolar, CAD, Cancer, CHF, COPD, GERD, High Cholesterol, Hypothyroid, Hypotension, Migraines, Renal Disease, Other Past Surgical History: Appendectomy, Cancer Surgery, Cervical Fusion, Cholecystectomy, Colectomy, Hysterectomy, Tonsillectomy Smoking: Cigarettes Alcohol Use: Occasionally Drug Use: Marijuana Adult General Chief Complaint Chief Complaint: SKIN PROBLEM HPI HPI Patient is a 63-year-old female who presents with complaint of rash that started out earlier today with just one red spot on her left leg and has since spread fairly rapidly to her legs and arms. Patient states the rash itches. She indicates that she is on Plavix and prednisone. She denies any history of ITP. She denies any recent fever or other symptoms of respiratory infection. Review of Systems Review of Systems Constitutional: Denies fever or chills [] Respiratory: Denies cough or shortness of breath [] Cardiovascular: No additional information not addressed in HPI [] GI: Denies abdominal pain, nausea, vomiting or diarrhea [] Integument: Positive rash and itching[] Neurologic: Denies headache, focal weakness or sensory changes [] All other systems were reviewed and found to be within normal limits, except as documented in this note. Allergies Allergies Allergies Coded Allergies Type Severity Reaction Last Updated Verified Penicillins Allergy Intermediate hives, short of air 03/02/19 Yes Sulfa (Sulfonamide Antibiotics) Allergy Intermediate hives 03/02/19 Yes atorvastatin Allergy Intermediate hives 03/02/19 Yes clonazepam Allergy Intermediate hives, short of air 03/02/19 Yes erythromycin base Allergy Intermediate hives 03/02/19 Yes fenofibrate Allergy Intermediate hives 03/02/19 Yes iodine Allergy Intermediate hives, short of air 03/02/19 Yes loratadine Allergy Intermediate hives, short of air 03/02/19 Yes pregabalin Allergy Intermediate hives 03/02/19 Yes rosuvastatin Allergy Intermediate hives 03/02/19 Yes sertraline Allergy Intermediate hives 03/02/19 Yes silver sulfadiazine Allergy Intermediate hives 03/02/19 Yes simvastatin Allergy Intermediate hives 03/02/19 Yes Physical Exam Physical Exam Constitutional: Well developed, well nourished, no acute distress, non-toxic appearance. [] HENT: Normocephalic, atraumatic, bilateral external ears normal, oropharynx moist, no oral exudates, nose normal. [] Eyes: PERRLA, EOMI, conjunctiva normal, no discharge. [] Neck: Normal range of motion, no tenderness, supple, no stridor. [] Cardiovascular:Heart rate regular rhythm, no murmur [] Lungs & Thorax: Bilateral breath sounds clear to auscultation [] Abdomen: Bowel sounds normal, soft, no tenderness, no masses, no pulsatile masses. [] Skin: There is a petechial, nonpalpable rash noted to lower extremities as well as upper extremities. [] Extremities: No tenderness, no cyanosis, no clubbing, ROM intact. [] Neurologic: Alert and oriented X 3, no focal deficits noted. [] EKG EKG [] Radiology/Procedures Radiology/Procedures [] Course & Med Decision Making Course & Med Decision Making Pertinent Labs and Imaging studies reviewed. (See chart for details) [] Dragon Disclaimer Dragon Disclaimer This electronic medical record was generated, in whole or in part, using a voice recognition dictation system. Departure Departure: Impression: Primary Impression: Petechial rash Disposition: 01 HOME, SELF-CARE Condition: STABLE Referrals: ISAAK DE LEON MD (PCP) Patient Instructions: Rash Scripts Prednisone (PREDNISONE) 50 Mg Tablet 1 TAB PO DAILY for rash, #5 TAB Prov: RICH ROBINS Jr. DO 03/02/19 RICH ROBINS Jr. DO Mar 02, 2019 19:23
[2019-03-02 19:38] LABS: BASO # 0.1 x10^3/uL (0.0-0.2); BASO % 1 % (0-3); EOS % 0 % (0-3); HEMATOCRIT 38.9 % (36.0-47.0); HEMOGLOBIN 12.3 g/dL (12.0-15.5); LYMPH # 1.8 x10^3/uL (1.0-4.8); LYMPH % 20 % (24-48); MEAN CORPUSCULAR HEMOGLOBIN 29 pg (25-35); MEAN CORPUSCULAR HGB CONC 32 g/dL (31-37); MEAN CORPUSCULAR VOLUME 93 fL (79-100); MONO # 0.4 x10^3/uL (0.0-1.1); MONO % 4 % (0-9); NEUT # 6.5 x10^3uL (1.8-7.7); NEUT % 74 % (31-73); PLATELET COUNT 311 x10^3/uL (140-400); RED BLOOD COUNT 4.19 x10^6/uL (3.50-5.40); RED CELL DISTRIBUTION WIDTH 18.3 % (11.5-14.5); WHITE BLOOD COUNT 8.8 x10^3/uL (4.0-11.0)
[2019-03-02 19:57] LABS: ALBUMIN 2.8 g/dL (3.4-5.0); ALBUMIN/GLOBULIN RATIO 0.7 (1.0-1.7); CALCIUM 8.5 mg/dL (8.5-10.1); GFR 56.4; POTASSIUM 4.4 mmol/L (3.5-5.1); TOTAL BILIRUBIN 0.2 mg/dL (0.2-1.0); TOTAL PROTEIN 6.9 g/dL (6.4-8.2)
[2019-03-02] MEDS ORDERED: methylPREDNISolone SOD SUCC PF 125 MG/2 ML VIAL. ONE (20:05)
[2019-03-02 20:15] VITALS: BP 115/75
[2019-03-02] MEDS ORDERED: methylPREDNISolone SOD SUCC PF 125 MG/2 ML VIAL. IV ONE (20:15)
[2019-03-02] MEDS ORDERED: diphenhydrAMINE 50 MG/ML VIAL IVP ONE (20:15)
[2019-03-02] MEDS ORDERED: PRED50TA PO (20:26)
== END 2019-03-02 20:30 | disposition home or self-care (01) ==
LOC: ER 18:47
DX: R23.3 Spontaneous ecchymoses (principal); M19.90 Unspecified osteoarthritis, unspecified site; F31.9 Bipolar disorder, unspecified; I25.10 Atherosclerotic heart disease of native coronary artery without angina pectoris; I50.9 Heart failure, unspecified; J44.9 Chronic obstructive pulmonary disease, unspecified; K21.9 Gastro-esophageal reflux disease without esophagitis; E78.00 Pure hypercholesterolemia, unspecified; E03.9 Hypothyroidism, unspecified; G43.909 Migraine, unspecified, not intractable, without status migrainosus; F17.210 Nicotine dependence, cigarettes, uncomplicated; Z88.0 Allergy status to penicillin; Z88.2 Allergy status to sulfonamides; Z88.8 Allergy status to other drugs, medicaments and biological substances; Z88.1 Allergy status to other antibiotic agents
CPT/HCPCS: 36415; 80053; 85025; 85610; 85730; 96374; 96375; 99284; J1200; J2930